=== PATIENT | female | born 1965 | race Caucasian/White ===

== ENCOUNTER → 2017-02-23 | Outpatient (CLI) | payer OTHER, MEDICAID ==
[~2017-02-23] MED LIST: ABILIFY 5 MG TAB5 MG PO; ADVAIR 500-501 EACH INH; ALTACE10 MG PO; AMBIEN 10 MG TA10 MG PO; AMITRIPTYLINE H50 M3; AMITRIPTYLINE H50 M3 PO; ASA5UEC PO; ASPIRIN325 PO; AUGMENTIN 875875 MG PO; AZITHROMYCIN 2250 MG PO; BENAZEPRIL HCL20 MG PO; CARBAMAZEPINE200 M2 PO; CARBAMAZEPINE200 M5 PO; CARISOPRODOL350 MG PO; CARVEDILOL3.125 MG PO; CATAPRES0.1 MG PO; CLONAZEPAM 1 MG1 M1 PO; CLONIDINE0.1 PO; COLACE100 MG PO; COREG3.125 MG PO; CORICIDIN COLD1 EACH PO; CYMBALTA30 MG PO; CYMBALTA60 MG PO; DICLOFENAC POTA50 MG PO; DICLOFENAC SODI25 MG PO; DICLOFENAC SODI75 M1 PO; DICLOFENAC SODI75 MG PO; DONNATAL E16.2 MG/1 PO; DONNATAL EXTEN1 EACH PO; DONNATAL PO; DOXEPIN 10 MG C10 MG PO; DOXEPIN 25 MG C25 MG PO; ELAVIL PO; FLEXERIL PO; HYDROCODONE-AP1 EAC6 PO; HYDROXYCHLOROQ200 M1 PO; HYDROXYZINE PAM25 M1 PO; IBUPROFEN 800800 M1 PO; INVEGA6 MG PO; KLOR-CON 1010 MEQ PO; LASIX 20 MG TAB20 MG PO; LEVAQUIN 250 M250 MG PO; LEVOTHYROXINE0.05 MG PO; LIORESAL 10 MG10 MG PO; LISINOPRIL10 MG PO; LOTENSIN HCT 21 EAC2 PO; LOTENSIN20 MG PO; LUNESTA3 MG PO; MEDROL DOSPAK21 TA1 PO; MEDROL DOSPAK21 TAB PO; MEDROLDOSEPACK PO; MEVACOR40 MG PO; MUCINEX600 MG PO; NEURONTIN800 MG PO; NICOTINE TRANSD14 M1 TD; NICOTINE TRANSDE7 MG TD; NORCO 5-325 TA1 EACH PO; OXYCODONE HCL 55 MG PO; OXYCODONE HCL15 MG PO; OXYCONTIN10 M1 PO; OXYCONTIN30 MG PO; PERCOCET 5-3251 EACH PO; PERCOCET 7.5-31 EACH PO; PERCOCET PO; PHENERGAN 25 MG25 M1 PO; POTASSIUM20 PO; PREDNISONE 10 M10 M1 PO; PREDNISONE 10 M10 MG; PREDNISONE 10 M10 MG PO; PREMARIN1.25 MG PO; PRILOSEC 20 MG20 MG PO; PRILOSEC40 MG PO; PROAIR HFA8.5 GM INH; PROPRANOLOL 8080 MG PO; REQUIP XL2 MG PO; RESTORIL15 MG PO; RESTORIL30 MG PO; ROBAXIN 750 MG750 M1; ROBAXIN 750 MG750 M1 PO; ROBAXIN 750 MG750 MG PO; ROBAXIN500 MG PO; SIMVASTATIN40 MG PO; SINGULAIR 10 MG10 M1 PO; SONATA10 MG; SONATA10 MG PO; SPIRIVA INH; SPRIVIA IN; TEGRETOL200 MG PO; TESSALON PERLE100 MG PO; TOPAMAX50 MG PO; TRAZODONE HCL50 MG PO; TRIAMCINOLONE A80 G2 TOP; VENTOLIN HFA 1818 GM; VENTOLIN HFA 1818 GM INH; VENTOLIN HFA INH8 GM IH; VISTARIL 25 MG25 M1 PO; VITAMIN D 5050000 I1 PO; VITAMIN D1000 UNI2 PO; VITAMIN D2000 UNIT PO; VITAMIN D3400 UNIT PO; ZITHROMAX250 MG PO; ZOCOR40 MG PO; ZPAK PO
[2017-02-23 15:25] LABS: CALCIUM 9.2 mg/dL (8.5-10.1); CREATININE 1.2 mg/dL (0.6-1.3); POTASSIUM 4.1 mmol/L (3.5-5.1)
== END ==
LOC: M.LAB 15:04
PROVIDERS: Internal Medicine Cardiovascular Disease
DX: I10 Essential (primary) hypertension (principal); E03.9 Hypothyroidism, unspecified

== ENCOUNTER → 2017-03-03 | Outpatient (CLI) | payer OTHER, MEDICAID | LOC: M.ULTRA 08:08 | DX: I10 Essential (primary) hypertension (principal) ==

== ENCOUNTER 2017-03-28 15:00 | Emergency (ER) | payer OTHER, MEDICAID ==
[~2017-03-28] VITALS: Ht 170.2 cm; Wt 104.3 kg
[~2017-03-28 15:00] MED LIST changes: -ALTACE10 MG PO; -CARBAMAZEPINE200 M5 PO; -CARVEDILOL3.125 MG PO; -CORICIDIN COLD1 EACH PO; -CYMBALTA30 MG PO; -DONNATAL PO; -DOXEPIN 10 MG C10 MG PO; -DOXEPIN 25 MG C25 MG PO; -HYDROXYCHLOROQ200 M1 PO; -OXYCODONE HCL15 MG PO; -OXYCONTIN10 M1 PO; -PRILOSEC 20 MG20 MG PO; -RESTORIL30 MG PO; -TRIAMCINOLONE A80 G2 TOP; -VENTOLIN HFA 1818 GM INH; -VISTARIL 25 MG25 M1 PO; -VITAMIN D1000 UNI2 PO; -ZITHROMAX250 MG PO; -ZPAK PO
[2017-03-28] MEDS ORDERED: ROBAXIN 750 MG750 M1 PO (15:36)
[2017-03-28] MEDS ORDERED: RESTORIL30 MG PO (15:37)
[2017-03-28] MEDS ORDERED: ALTACE10 MG PO (15:37)
[2017-03-28] MEDS ORDERED: NORCO 5-325 TA1 EACH PO (15:59)
[2017-03-28 16:59] VITALS: BP 110/61
== END 2017-03-28 17:00 | disposition home or self-care (01) ==
LOC: M.ERS 15:00
DX: S82.891A Other fracture of right lower leg, initial encounter for closed fracture (principal); I10 Essential (primary) hypertension; K21.9 Gastro-esophageal reflux disease without esophagitis; F32.9 Major depressive disorder, single episode, unspecified; F41.9 Anxiety disorder, unspecified; E78.00 Pure hypercholesterolemia, unspecified; Z90.710 Acquired absence of both cervix and uterus; Z88.5 Allergy status to narcotic agent; Z88.2 Allergy status to sulfonamides; Z91.041 Radiographic dye allergy status; Y93.89 Activity, other specified; W00.0XXA Fall on same level due to ice and snow, initial encounter; Y92.89 Other specified places as the place of occurrence of the external cause; Y99.8 Other external cause status

== ENCOUNTER → 2017-04-13 | Outpatient (CLI) | payer OTHER, MEDICAID ==
[~2017-04-13] MED LIST changes: +ALTACE10 MG PO; +CARBAMAZEPINE200 M5 PO; +CARVEDILOL3.125 MG PO; +CORICIDIN COLD1 EACH PO; +CYMBALTA30 MG PO; +DONNATAL PO; +DOXEPIN 10 MG C10 MG PO; +DOXEPIN 25 MG C25 MG PO; +HYDROXYCHLOROQ200 M1 PO; +OXYCODONE HCL15 MG PO; +OXYCONTIN10 M1 PO; +PRILOSEC 20 MG20 MG PO; +RESTORIL30 MG PO; +TRIAMCINOLONE A80 G2 TOP; +VENTOLIN HFA 1818 GM INH; +VISTARIL 25 MG25 M1 PO; +VITAMIN D1000 UNI2 PO; +ZITHROMAX250 MG PO; +ZPAK PO
== END ==
LOC: M.ULTRA 16:27
DX: M79.661 Pain in right lower leg (principal)

== ENCOUNTER 2017-05-17 14:44 | Emergency (ER) | payer OTHER, MEDICAID ==
[~2017-05-17] VITALS: Ht 170.2 cm; Wt 99.8 kg
[~2017-05-17 14:44] MED LIST changes: -CARBAMAZEPINE200 M5 PO; -CARVEDILOL3.125 MG PO; -CORICIDIN COLD1 EACH PO; -CYMBALTA30 MG PO; -DONNATAL PO; -DOXEPIN 10 MG C10 MG PO; -DOXEPIN 25 MG C25 MG PO; -HYDROXYCHLOROQ200 M1 PO; -OXYCODONE HCL15 MG PO; -OXYCONTIN10 M1 PO; -PRILOSEC 20 MG20 MG PO; -TRIAMCINOLONE A80 G2 TOP; -VENTOLIN HFA 1818 GM INH; -VISTARIL 25 MG25 M1 PO; -VITAMIN D1000 UNI2 PO; -ZITHROMAX250 MG PO; -ZPAK PO
[2017-05-17] MEDS ORDERED: ZPAK PO (15:25)
[2017-05-17] MEDS ORDERED: TESSALON PERLE100 MG PO (15:25)
[2017-05-17] MEDS ORDERED: MEDROLDOSEPACK PO (15:25)
[2017-05-17] MEDS ORDERED: CORICIDIN COLD1 EACH PO (15:26)
[2017-05-17 15:43] VITALS: BP 188/90
== END 2017-05-17 15:43 | disposition home or self-care (01) ==
LOC: M.ERS 14:44
DX: J20.9 Acute bronchitis, unspecified (principal); I10 Essential (primary) hypertension; E78.00 Pure hypercholesterolemia, unspecified; M79.7 Fibromyalgia; K21.9 Gastro-esophageal reflux disease without esophagitis; Z90.710 Acquired absence of both cervix and uterus; Z88.2 Allergy status to sulfonamides; Z88.5 Allergy status to narcotic agent

== ENCOUNTER 2017-11-17 13:36 | Inpatient (IN) | payer OTHER, MEDICAID ==
[~2017-11-17] VITALS: Ht 170.2 cm; Wt 106.1 kg
[~2017-11-17 13:36] MED LIST changes: +CORICIDIN COLD1 EACH PO; +ZPAK PO
[2017-11-17 13:40] VITALS: BP 100/58
[2017-11-17] MEDS ORDERED: ZITHROMAX250 MG PO (13:51)
[2017-11-17] MEDS ORDERED: VENTOLIN HFA 1818 GM INH (13:51)
[2017-11-17] MEDS ORDERED: TRIAMCINOLONE A80 G2 TOP (13:52)
[2017-11-17] MEDS ORDERED: DOXEPIN 25 MG C25 MG PO (13:52)
[2017-11-17 14:07] LABS: ABSOLUTE BASOPHILS 0.1 thou/uL (0.0-0.2); ABSOLUTE EOSINOPHILS 0.4 thou/uL (0.0-0.7); ABSOLUTE LYMPHOCYTES 1.9 thou/uL (0.8-5.3); ABSOLUTE MONOCYTES 1.1 thou/uL (0.0-1.2); ABSOLUTE NEUTROPHILS 8.1 thou/uL (1.6-8.1); BASOPHILS 1.1 %; EOSINOPHILS 3.7 %; HEMATOCRIT 38.5 % (37.0-47.0); HEMOGLOBIN 12.9 gm/dL (12.0-15.0); LYMPHOCYTES 16.5 %; MCH 31.1 pg (26.0-34.0); MCHC 33.4 g/dL (28.0-37.0); MCV 93.2 fL (80.0-100.0); MONOCYTES 9.5 %; MPV 8.5 fl. (7.2-11.1); NUCLEATED RBCS 0 /100WBC; PLATELET COUNT* 271 thou/uL (150-400); POLYS 69.2 %; RBC 4.14 mil/uL (4.20-5.00); RDW-CV 13.8 % (10.5-14.5); WBC 11.7 thou/uL (4.0-11.0)
[2017-11-17 14:12] LABS: ANION GAP 6 mmol/L (7-16); BUN 22 mg/dL (7-18); CHLORIDE 96 mmol/L (98-107); CO2 26 mmol/L (21-32); CREATININE 1.2 mg/dL (0.6-1.3); GLUCOSE 117 mg/dL (70-99); POTASSIUM 3.7 mmol/L (3.5-5.1); SODIUM 128 mmol/L (136-145)
[2017-11-17 14:24] LABS: ALBUMIN 3.2 g/dL (3.4-5.0); ALKALINE PHOSPHATASE 120 U/L (46-116); NT-PRO BRAIN NAT PEPTIDE 140 pg/mL (<300); SGOT 120 U/L (15-37); SGPT 34 U/L (30-65); TOTAL BILIRUBIN 1.2 mg/dL (<0.1-1.0); TOTAL PROTEIN 7.8 g/dL (6.4-8.2); TROPONIN-I LEVEL <0.06 ng/mL (<0.06)
[2017-11-17 16:00] LABS: ICTOTEST (BILI CONFIRMATORY) Negative (Negative); URINE BILIRUBIN 2+ (Negative); URINE BLOOD 1+ (Negative); URINE CLARITY CLEAR; URINE COLOR DARK YELLOW; URINE GLUCOSE-RANDOM NEGATIVE (Negative); URINE KETONES NEGATIVE (Negative); URINE LEUKOCYTES-REFLEX NEGATIVE (Negative); URINE NITRITE-REFLEX NEGATIVE (Negative); URINE PROTEIN 1+ (Negative); URINE SPECIFIC GRAVITY 1.025 (1.005-1.030)
[2017-11-17 16:25] VITALS: BP 99/43
[2017-11-17 16:33] LABS: HYALINE CASTS >10 Many /LPF (None Seen); SQUAMOUS >10 Many /LPF (0-3)
[2017-11-17 16:34] LABS: CRYSTALS None Seen /LPF (None Seen); MUCUS 0-3 Light strn/LPF (None Seen); URINE RBC 0-2 Rare /HPF (0-2); URINE WBC-REFLEX 0-5 Rare /HPF (0-5)
[2017-11-17 16:35] LABS: BACTERIA-REFLEX 1-9 Few /HPF (None Seen)
[2017-11-17 17:07] LABS: INFLUENZA A ANTIGEN None Detected (None Detect); INFLUENZA B ANTIGEN None Detected (None Detect)
[2017-11-17] MEDS ORDERED: OXYCONTIN10 M1 PO (17:12)
[2017-11-17] MEDS ORDERED: OXYCODONE HCL15 MG PO (17:13)
--- NOTE | 2017-11-17 17:30 | EKG ---
[place] [address] ELECTROCARDIOGRAM REPORT Name: HUY MARCIAL Room: [address] ADM IN M.R.#: [id number] Admission: 11/17/17 Attend Phys: Edmundo Esteban Discharge: Date of : 69 Report #: [id number] THIS REPORT FOR: //name// [facility] ED Test Date: 2017-11-17 Test Time: 13:55:36 Pat Name: HUY MARCIAL Department: Room: [facility] Gender: F Insurance Special Agent: Mandy HARTMANN : 1965 Requested By: Norris Rose Order Number: [id number] MD: Wilmar Srinivasan Measurements Intervals [place] Rate: 76 P: 41 DE: 142 QRS: 18 QRSD: 146 T: -2 QT: 402 QTc: 453 Interpretive Statements Sinus rhythm Probable left atrial enlargement Right bundle branch block Compared to ECG 10/08/2014 16:53:21 Sinus tachycardia no longer present T-wave abnormality no longer present Electronically Signed On 11-17-2017 17:30:11 CDT by Wilmar Srinivasan [email or web address] <ELECTRONICALLY SIGNED> By: Wilmar Srinivasan MD, FACC 11/17/17 1730 1355 [id number] Wilmar Srinivasan MD, FAC /EPI
--- NOTE | 2017-11-17 18:36 | NUR ---
PT ADMITTED FROM ED WITH PNEUMONIA. PT DROWSY AND ORIENTED X4. PT UNABLE TO STAY AWAKE DURING CONVERSATION AND HAS SLOW RESPONSE IN DECISION MAKING, PUPILS DILATED. PT HAS CHRONIC PAIN AND REPORTS TAKING OXYCONTIN ER 10MG AND 15MG. PT REPORTS TAKING 15MG OXYCONTIN ER DAILY IN THE MORNING AND BEGAN TO TELL THIS NURSE 10MG OXYCONTIN ER IS TAKEN 4-6 TIMES A DAY, COUNTING ON FINGERS. WHEN QUESTIONED ABOUT THIS, PT SAID 10MG OXYCONTIN IS TAKEN JUST ONCE IN EARLY AFTERNOON. PT CONTINUALLY NODS OFF DURING CONVERSATION. RESPIRATIONS EVEN AND UNLABORED AT REST. PT REPORTS OCCASIONAL NONPRODUCTIVE COUGH. LUNGS CLEAR THROUGHOUT. O2 SAT 93 2L O2 NC. TELE SR 70'S. PT LIVES ALONE BUT HAS A CAREGIVER FOR 12 HOURS A DAY. PT ORIENTED TO ROOM, CALL LIGHT IN REACH.
[2017-11-17] MEDS ORDERED: DONNATAL PO (19:00)
[2017-11-17 19:30] VITALS: BP 94/49
[2017-11-18] VITALS: BP 105/58
[2017-11-18 04:00] VITALS: BP 120/52
--- NOTE | 2017-11-18 07:35 | NUR ---
ASSUMED CARE AT 1930, ASSESSMENT CHARTED. PATIENT ALERT/ORIENTED X4, RESTING IN BED. PATIENT DROWSY, ORIENTED X4. SLURRED SPEECH NOTED, STATES THAT'S NOT NEW FOR HER AND THAT SHE'S HAD IT SINCE HER VOCAL CORD SURGERY. ON TELE, SR. WEARING OXYGEN 2L/NC, SOB WITH EXERTION, SATS 91%. SL INTACT TO LEFT AC, FLUSHES WELL. UP WITH ASSIST, WEAKNESS NOTED. STATES HAVING BACK PAIN, RATES 6/10, REASSURANCE GIVEN. REFUSING SCD'S. MEDS PER APR. BED ALARM ON. CALL LIGHT WITHIN REACH, ENCOURAGED TO CALL FOR NEEDS.
--- NOTE | 2017-11-18 07:39 | NUR ---
PATIENT UP IN CHAIR THIS AM. PAIN MEDICATION GIVEN PER MAR FOR STATED BACK PAIN. CHAIR ALARM ON. REPORT GIVEN TO ONCOMING NURSE.
[2017-11-18 07:55] VITALS: BP 100/47
--- NOTE | 2017-11-18 08:04 | NUR ---
RECIEVED REPORT. ASSUMED CARE OF PT AT 0730. VSS. CARDIAC MONITORING IN PLACE SR. AM ASSESSMENT AND VITALS COMPLETED CHARTED. PT IS DROWSY THIS AM. BUT IS ORIENTED. PT ON 2L PER NC WITH O2 SAT AT 92%. IV SALINE LOCKED AT THIS TIME. PT DENIES ANY PAIN. PT SITTING UP IN CHAIR THIS AM. PER REPORT PT UNSTEADY ON FEET. FALL PRECAUTIONS IN PLACE. PT INFORMED OF PLAN OF CARE. CALL LIGHT IS WITHIN REACH. WILL CONTINUE TO MONTIOR FOR DURATION OF SHIFT.
[2017-11-18 11:36] VITALS: BP 116/63
[2017-11-18] MEDS ORDERED: CARBAMAZEPINE200 M5 PO (15:11)
[2017-11-18] MEDS ORDERED: CARVEDILOL3.125 MG PO (15:11)
[2017-11-18] MEDS ORDERED: VITAMIN D1000 UNI2 PO (15:12)
[2017-11-18] MEDS ORDERED: DOXEPIN 10 MG C10 MG PO (15:15)
[2017-11-18] MEDS ORDERED: CYMBALTA30 MG PO (15:16)
[2017-11-18] MEDS ORDERED: VISTARIL 25 MG25 M1 PO (15:18)
[2017-11-18] MEDS ORDERED: IBUPROFEN 800800 M1 PO (15:19)
[2017-11-18] MEDS ORDERED: ROBAXIN 750 MG750 M1 PO (15:20)
[2017-11-18] MEDS ORDERED: LISINOPRIL10 MG PO (15:20)
[2017-11-18] MEDS ORDERED: SINGULAIR 10 MG10 M1 PO (15:21)
[2017-11-18] MEDS ORDERED: PRILOSEC 20 MG20 MG PO (15:22)
[2017-11-18] MEDS ORDERED: SIMVASTATIN40 MG PO (15:25)
[2017-11-18 15:27] VITALS: BP 130/68
[2017-11-18] MEDS ORDERED: CLONAZEPAM 1 MG1 M1 PO (15:55)
[2017-11-18] MEDS ORDERED: HYDROXYCHLOROQ200 M1 PO (15:57)
--- NOTE | 2017-11-18 16:00 | NUR ---
pt's home med list updated per medical records in chart.
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
--- NOTE | 2017-11-18 16:52 | 2DMMODE ---
[place] [address] 2 D/M-MODE ECHOCARDIOGRAM Name: HUY MARCIAL Room: [address] ADM IN [facility]#: [id number] Admission: 11/17/17 Attend Phys: Bharath Kellogg Discharge: Date of : 69 Date of Service: 11/18/17 1652 Report #: [id number] THIS REPORT FOR: //name// APPROVED REPORT Study performed: 11/18/2017 15:48:32 EXAM: Comprehensive 2D, Doppler, and color-flow Echocardiogram Patient Location: In-Patient Room #: [facility] Status: routine BSA: 2.16 HR: 77 bpm BP: 116/63 mmHg Rhythm: NSR Other Information Study Quality: Good Indications Dyspnea 2D Dimensions IVSd: 13.18 (7-11mm) LVOT Diam: 19.07 (18-24mm) LVDd: 47.81 mm PWd: 11.20 (7-11mm) Ascending Ao: 28.36 (22-36mm) LVDs: 26.31 (25-40mm) Aortic Root: 33.88 mm Volumes Left Atrial Volume (Systole) LA ESV Index: 28.90 mL/m2 Aortic Valve AoV Peak Riley.: 1.79 m/s AO Peak Gr.: 12.82 mmHg LVOT Max P.61 mmHg AO Mean Gr.: 7.24 mmHg LVOT Mean P.38 mmHg LVOT Max V: 1.70 m/s AO V2 VTI: 31.12 cm LVOT Mean V: 1.05 m/s RHINA (VTI): 3.00 cm2 LVOT V1 VTI: 32.71 cm Mitral Valve E/A Ratio: 1.61 MV Decel. Time: 161.61 ms MV E Max Riley.: 1.16 m/[place] [address] 2 D/M-MODE ECHOCARDIOGRAM Name: HUY MARCIAL Room: [address] IN .R.#: [id number] Admission: 11/17/17 Attend Phys: Bharath Kellogg Discharge: Date of : 69 Date of Service: 11/18/17 1652 Report #: [id number] MV PHT: 46.87 ms MVA (PHT): 4.69 cm2 TDI E/Lateral E': 7.25 E/Medial E': 5.80 Medial E' Riley.: 0.20 m/s Lateral E' Riley.: 0.16 m/s Pulmonary Valve PV Peak Riley.: 1.13 m/s PV Peak Gr.: 5.13 mmHg Tricuspid Valve RAP Estimate: 5.00 mmHg TR Peak Gr.: 26.60 mmHg RVSP: 31.00 mmHg PA Pressure: 31.00 mmHg Left Ventricle The left ventricle is normal size. There is normal LV segmental wall motion. There is normal left ventricular wall thickness. Left ventricular systolic function is normal. The left ventricular ejection fraction is within the normal range. LVEF is 65%. The left ventricular diastolic function is normal. Right Ventricle The right ventricle is normal size. The right ventricular systolic function is normal. Atria The left atrium size is normal. The right atrium size is normal. Aortic Valve The aortic valve is normal in structure. No aortic regurgitation is present. There is no aortic valvular stenosis. Mitral Valve The mitral valve is normal in structure. There is no mitral valve regurgitation noted. No evidence of mitral valve stenosis. Tricuspid Valve The tricuspid valve is normal in structure. Mild tricuspid regurgitation. Mild pulmonary hypertension. Pulmonic Valve The pulmonary valve is normal in structure. [place] [address] 2 D/M-MODE ECHOCARDIOGRAM Name: HUY MARCIAL Room: [address] IN [facility]#: [id number] Admission: 11/17/17 Attend Phys: Bharath Kellogg Discharge: Date of : 69 Date of Service: 11/18/17 1652 Report #: [id number] Great Vessels The aortic root is normal in size. IVC is normal in size and collapses >50% with inspiration. Pericardium There is no pericardial effusion. <Conclusion> The left ventricle is normal size. There is normal left ventricular wall thickness. Left ventricular systolic function is normal. The left ventricular ejection fraction is within the normal range. LVEF is 65%. The left ventricular diastolic function is normal. The right ventricle is normal size. The left atrium size is normal. The aortic valve is normal in structure. The mitral valve is normal in structure. The tricuspid valve is normal in structure. IVC is normal in size and collapses >50% with inspiration. There is no pericardial effusion. There is normal LV segmental wall motion. <ELECTRONICALLY SIGNED> By: Wilmar Srinivasan MD, FACC 11/18/171651 51 51 Wilmar Srinivasan MD, FACC /INF
--- NOTE | 2017-11-18 18:07 | NUR ---
VSS. CARDIAC MONITORING IN PLACE WITH NO CHANGES. THIS SHIFT. PT'S PAIN WELL MANAGED WITH PO PAIN MEDS. PT IS UP WITH STAND BY ASSISTANCE. IV SALINE LOCKED. PT MORE AWAKE THIS AFTERNOON. CALL LIGHT IS WITHIN REACH. WILL CONTINUE TO MONTIOR FOR DURATION OF SHIFT.
[2017-11-18 19:30] VITALS: BP 151/68
[2017-11-19] VITALS (9 sets, daily range): BP systolic 108–146; BP diastolic 47–76
[2017-11-19 04:27] LABS: ABSOLUTE BASOPHILS 0.1 thou/uL (0.0-0.2); ABSOLUTE EOSINOPHILS 0.3 thou/uL (0.0-0.7); ABSOLUTE MONOCYTES 0.7 thou/uL (0.0-1.2); ABSOLUTE NEUTROPHILS 3.7 thou/uL (1.6-8.1); BASOPHILS 1.4 %; HEMATOCRIT 34.4 % (37.0-47.0); HEMOGLOBIN 11.4 gm/dL (12.0-15.0); LYMPHOCYTES 29.9 %; MCH 31.1 pg (26.0-34.0); MCHC 33.2 g/dL (28.0-37.0); MCV 93.8 fL (80.0-100.0); MONOCYTES 9.7 %; MPV 8.2 fl. (7.2-11.1); NUCLEATED RBCS 0 /100WBC; PLATELET COUNT* 291 thou/uL (150-400); RBC 3.67 mil/uL (4.20-5.00); RDW-CV 13.7 % (10.5-14.5); WBC 6.8 thou/uL (4.0-11.0)
--- NOTE | 2017-11-19 07:30 | NUR ---
PATIENT RESTED WELL THROUGH THE NIGHT. UP WITH SBA IN ROOM. DENIES NEEDS. BED ALARM ON. WILL MONITOR.
[2017-11-19] MEDS ORDERED: DONNATAL PO (12:10)
[2017-11-19] MEDS ORDERED: CYMBALTA30 MG PO (12:10)
[2017-11-19] MEDS ORDERED: HYDROXYCHLOROQ200 M1 PO (12:10)
[2017-11-19] MEDS ORDERED: SPRIVIA IN (12:10)
[2017-11-19] MEDS ORDERED: LISINOPRIL10 MG PO (12:10)
[2017-11-19] MEDS ORDERED: PROAIR HFA8.5 GM INH (12:10)
[2017-11-19] MEDS ORDERED: REQUIP XL2 MG PO (12:10)
[2017-11-19] MEDS ORDERED: OXYCODONE HCL15 MG PO (12:10)
[2017-11-19] MEDS ORDERED: CLONAZEPAM 1 MG1 M1 PO (12:10)
[2017-11-19] MEDS ORDERED: DOXEPIN 10 MG C10 MG PO (12:10)
[2017-11-19] MEDS ORDERED: VITAMIN D1000 UNI2 PO (12:10)
[2017-11-19] MEDS ORDERED: SINGULAIR 10 MG10 M1 PO (12:10)
[2017-11-19] MEDS ORDERED: RESTORIL30 MG PO (12:10)
[2017-11-19] MEDS ORDERED: PRILOSEC 20 MG20 MG PO (12:10)
[2017-11-19] MEDS ORDERED: ABILIFY 5 MG TAB5 MG PO (12:10)
[2017-11-19] MEDS ORDERED: IBUPROFEN 800800 M1 PO (12:10)
[2017-11-19] MEDS ORDERED: CARBAMAZEPINE200 M5 PO (12:10)
[2017-11-19] MEDS ORDERED: ROBAXIN 750 MG750 M1 PO (12:10)
[2017-11-19] MEDS ORDERED: SIMVASTATIN40 MG PO (12:10)
[2017-11-19] MEDS ORDERED: CARVEDILOL3.125 MG PO (12:10)
--- NOTE | 2017-11-19 14:10 | NUR ---
Pt to dc to home today, now requiring o2 during the day, Ex Ox ordered. CM spoke with [facility] [phone], CM to fax qualifying info once ExOx complete [phone]
--- NOTE | 2017-11-20 01:22 | NUR ---
RECEIVED REPORT AND ASSUMED CARE AT 1900. VSS. ASSESSMENT COMPLETED CHARTED. PT REPORTED PAIN IN HER BACK, PRN PAIN MEDICATION ADMIN PER ORDERS. DISCUSSED PLAN OF CARE.VERBALIZED UNDERSTANDING . PT WAS TO BE DISCHARGED THIS AFTERNOON. PT CAREGIVER UNABLE TO BRING OXYGEN FROM HOME FOR PT TO WEAR WHILE TRANSPORTING. PT ON 2L NC, UP AD STEFANIA IN ROOM. MEDICATION ADMIN PER ORDERS. WILL CONTINUE TO MONITOR FOR REMAINDER OF THE SHIFT
--- NOTE | 2017-11-20 08:00 | NUR ---
Pt resting in bed, appears alert o x 4, denies chets pain, SOB, does C/O chronic back pain, plan on D/C today, needs O2 set up prior to D/C
--- NOTE | 2017-11-20 10:14 | NUR ---
Pt's dc delayed yesterday, d/t Pt's o2 company not bringing a portable o2 tank. Pt's is coming from the [employer] to bring her a tank around noon today. CM faxed scripts to [facility] in [place] f:[phone], p:[phone].
[2017-11-20 12:35] VITALS: BP 146/67
== END 2017-11-20 12:39 | disposition home or self-care (01) | DRG 177 ==
LOC: M.ERS 13:36 → M.TBA-ER 15:15 → M.2W 15:15
PROVIDERS: Emergency Medicine Emergency Medical Services; ADMIT Internal Medicine
DX: J15.6 Pneumonia due to other Gram-negative bacteria (principal); J96.20 Acute and chronic respiratory failure, unspecified whether with hypoxia or hypercapnia; I10 Essential (primary) hypertension; E78.00 Pure hypercholesterolemia, unspecified; K21.9 Gastro-esophageal reflux disease without esophagitis; F32.9 Major depressive disorder, single episode, unspecified; F41.9 Anxiety disorder, unspecified; M79.7 Fibromyalgia; E04.9 Nontoxic goiter, unspecified; Z88.2 Allergy status to sulfonamides; Z88.5 Allergy status to narcotic agent; Z90.710 Acquired absence of both cervix and uterus; Z91.041 Radiographic dye allergy status; Z79.899 Other long term (current) drug therapy

== ENCOUNTER 2018-04-02 15:44 | Inpatient (IN) | payer OTHER, MEDICAID ==
[~2018-04-02] VITALS: Ht 170.2 cm; Wt 98.0 kg
[~2018-04-02 15:44] MED LIST changes: +CARBAMAZEPINE200 M5 PO; +CARVEDILOL3.125 MG PO; +CYMBALTA30 MG PO; +DONNATAL PO; +DOXEPIN 10 MG C10 MG PO; +DOXEPIN 25 MG C25 MG PO; +HYDROXYCHLOROQ200 M1 PO; +OXYCODONE HCL15 MG PO; +OXYCONTIN10 M1 PO; +PRILOSEC 20 MG20 MG PO; +TRIAMCINOLONE A80 G2 TOP; +VENTOLIN HFA 1818 GM INH; +VISTARIL 25 MG25 M1 PO; +VITAMIN D1000 UNI2 PO; +ZITHROMAX250 MG PO
[2018-04-02 15:50] VITALS: BP 146/77
[2018-04-02 16:14] LABS: ABSOLUTE BASOPHILS 0.1 thou/uL (0.0-0.2); ABSOLUTE EOSINOPHILS 0.2 thou/uL (0.0-0.7); ABSOLUTE LYMPHOCYTES 1.4 thou/uL (0.8-5.3); ABSOLUTE MONOCYTES 0.7 thou/uL (0.0-1.2); ABSOLUTE NEUTROPHILS 8.1 thou/uL (1.6-8.1); BASOPHILS 0.7 %; EOSINOPHILS 2.3 %; HEMATOCRIT 45.4 % (37.0-47.0); HEMOGLOBIN 15.3 gm/dL (12.0-15.0); LYMPHOCYTES 13.4 %; MCH 31.6 pg (26.0-34.0); MCHC 33.6 g/dL (28.0-37.0); MCV 94.1 fL (80.0-100.0); MONOCYTES 6.6 %; MPV 9.1 fl. (7.2-11.1); NUCLEATED RBCS 0 /100WBC; PLATELET COUNT* 195 thou/uL (150-400); RBC 4.83 mil/uL (4.20-5.00); RDW-CV 13.2 % (10.5-14.5); WBC 10.5 thou/uL (4.0-11.0)
[2018-04-02 16:35] LABS: CALCIUM 8.9 mg/dL (8.5-10.1); CREATININE 0.9 mg/dL (0.6-1.3); POTASSIUM 3.8 mmol/L (3.5-5.1)
[2018-04-02 16:42] LABS: APTT 34.3 Seconds (25.0-31.3); INR 1.1; PROTIME 11.4 Seconds (9.20-11.50)
[2018-04-02 16:43] LABS: ALBUMIN 3.1 g/dL (3.4-5.0); TOTAL BILIRUBIN 0.5 mg/dL (<0.1-1.0); TOTAL PROTEIN 7.6 g/dL (6.4-8.2)
[2018-04-02 16:58] LABS: INFLUENZA A ANTIGEN None Detected (None Detect); INFLUENZA B ANTIGEN None Detected (None Detect)
[2018-04-02 17:20] VITALS: BP 157/70
[2018-04-02 17:29] VITALS: BP 123/69
--- NOTE | 2018-04-02 18:44 | NUR ---
ADMIT NOTE - PT ADMITTED TO [facility] WITH PNEUMONIA. PT ON 6L NC. PT ABLE TO WALK TO BR WITH STANDBY ASSIST. PT HAS HOME O2 CURRENTLY AND USES 3L AT HS. WILL CONTINUE TO MONITOR.
[2018-04-02 19:10] VITALS: BP 111/62
--- NOTE | 2018-04-02 23:05 | NUR ---
ASSESSMENT COMPLETED CHARTED. TRACING SR-ST ON NURSE PRACTITIONER HOME ASSESSMENTS. VSS. PT DENIES PAIN, N/V/D. PT REMAINS ON 2LPM. NO NEW CONCERNS. HOURLY ROUNDING FOR PT SAFETY. CLWR.
[2018-04-03 08:00] VITALS: BP 116/75
[2018-04-03 16:09] VITALS: BP 113/55
--- NOTE | 2018-04-03 17:19 | NUR ---
SHIFT NOTE - PT UP TO BR WITH STANDBY ASSIST. PT STILL ON 6L O2 SATTING 91%. WILL CONTINUE TO MONITOR.
[2018-04-04] VITALS (11 sets, daily range): BP systolic 122–227; BP diastolic 56–200
[2018-04-04 05:00] LABS: ABSOLUTE LYMPHOCYTES 1.9 thou/uL (0.8-5.3); ABSOLUTE MONOCYTES 1.1 thou/uL (0.0-1.2); BASOPHILS 0.1 %; HEMATOCRIT 38.9 % (37.0-47.0); HEMOGLOBIN 12.9 gm/dL (12.0-15.0); LYMPHOCYTES 10.7 %; MCH 31.6 pg (26.0-34.0); MCHC 33.1 g/dL (28.0-37.0); MCV 95.5 fL (80.0-100.0); MPV 9.5 fl. (7.2-11.1); NUCLEATED RBCS 0 /100WBC; PLATELET COUNT* 189 thou/uL (150-400); POLYS 83.2 %; RBC 4.07 mil/uL (4.20-5.00); RDW-CV 12.9 % (10.5-14.5)
--- NOTE | 2018-04-04 06:44 | NUR ---
PATIENT SLEPT WELL AFTER FLUIDS DC'D, LASIX AND BREATHING TREATMENTS. PT ON O2 @ 12 LITERS PER HI FLOW CANNULA. PT UP TO BSC WITH STANDBY ASSIST. PT GIVEN PAIN MEDICATION AT HS. PT DENIES NEEDS AT THIS TIME. WILL CONTINUE TO MONITOR.
--- NOTE | 2018-04-04 10:47 | NUR ---
SW met with pt to complete initial assessment, introduce self, and SW role. Pt lives at home alone; with caregiver 10 to 3:30 (pt did not say anything about whether her is supportive or not as was contact at last admission to hospital). Pt has hx oxygen, SW asked if pt still has oxygen at home and she said she has 2 bottles to take home. Pt was sleepy and difficult to follow in conversation...possibly due to previous TBI or possibly due to pt expressed she was really weak and tired right now. SW provided resources for more private duty options as well as DME and HH options. SW to continue to follow to assist with safe dc planning.
[2018-04-04 17:41] LABS: BE 0 mmol/L (-2 to +3)
[2018-04-04 17:46] LABS: PCO2 60.9 mmHg (35.0-45.0); pH 7.283 (7.340-7.450)
--- NOTE | 2018-04-04 18:29 | NUR ---
0700 assmed care of pt. pt up to bedside commode with minimal assist. IV LEFT AC PATENT AND FLUSHED. LUNGS HAVE CRACKLES AND WHEEZES BILATERALLY THROUGHOUT, PT CONT ON 12L O2 VIA NC. 0950 THIS NURSE SENT A MESSAGE VIA [employer], PT SAT 91% ON 2LO2.
--- NOTE | 2018-04-04 18:33 | NUR ---
1300 DR. ALEXIS HERE TO SEE PT. NEW ORDER FOR PULMONOLOGY CONSULT ENTERED. THIS NURSE CALLED CONSULT IN STAT.
--- NOTE | 2018-04-04 18:34 | NUR ---
1700 PT HAS FEVER OF 100.0, TYLENOL GIVEN AT 1730
--- NOTE | 2018-04-04 18:35 | NUR ---
1730 PULMONOLOGY HERE FOR CONSULT. NEW ORDERS FOR ABG FOR HYPOXIA. 1745 LAB CALLED RESULTS TO THIS NURSE, RESULTS GIVEN TO WHO IS PRESENT ON UNIT. ORDERS TO TRANSFER PT TO ICU AND PUT ON BI-PAP. 1800 THIS NURSE AND NURSE AIDE TRANSFERRED PT TO ICU, BEDSIDE REPORT GIVEN TO ANA.
--- NOTE | 2018-04-04 18:38 | NUR ---
PATIENT TRANSFERED TO ROOM 2 IN ICU. RECEIVED REPORT FROM JOSE CROWELL, ALL QUESTIONS ANSWERED WITH BEDSIDE REPORT. JOSE TOLD PATIENT SHE WOULD CALL AND NOTIFIY PATIENTS . 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 PATIENT DOES NOT LIKE BIPAP, EXPLAINED TO HER THE IMPORTANCE OF KEEPING ON, PATIENT AGREED FOR NOW BUT IS FORGETFUL. CALL LIGHT IN REACH.
[2018-04-04 20:40] LABS: BE 0.4 mmol/L (-2 to +3); PO2 88.4 mmHg (75.0-100.0)
[2018-04-04 20:44] LABS: PCO2 61.8 mmHg (35.0-45.0); pH 7.283 (7.340-7.450)
[2018-04-05] VITALS (37 sets, daily range): BP systolic 89–146; BP diastolic 42–69
[2018-04-05 00:29] LABS: BE 2.8 mmol/L (-2 to +3); PO2 93.2 mmHg (75.0-100.0)
[2018-04-05 00:38] LABS: PCO2 79.5 mmHg (35.0-45.0); pH 7.232 (7.340-7.450)
[2018-04-05 06:23] LABS: BE 5.2 mmol/L (-2 to +3); PO2 83.1 mmHg (75.0-100.0); pH 7.365 (7.340-7.450)
[2018-04-05 06:26] LABS: PCO2 57.9 mmHg (35.0-45.0)
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
--- NOTE | 2018-04-05 08:41 | NUR ---
Pt intubated at [address] Mclaughlin. Pt became agitated and very restless shortly after procedure. Titrated fentanyl, versed, & propofol gtts to achieve light sedation. SBP upper 80s to low 100s until around 0400. BP and MAP stable since. Pt was anxious and tearful prior to being intubated. Pt's (ex?) arrived at bedside just prior to intubation per pt request to provide support. ABGs improved after adjustments made to ventilator settings per Dr. Walters's orders. Will continue to monitor.
[2018-04-05 10:22] LABS: HEMATOCRIT 39.3 % (37.0-47.0); HEMOGLOBIN 12.9 gm/dL (12.0-15.0); MCHC 32.8 g/dL (28.0-37.0); MCV 94.6 fL (80.0-100.0); MPV 8.8 fl. (7.2-11.1); NUCLEATED RBCS 0 /100WBC; PLATELET COUNT* 193 thou/uL (150-400); RBC 4.15 mil/uL (4.20-5.00); RDW-CV 13.4 % (10.5-14.5); WBC 13.1 thou/uL (4.0-11.0)
[2018-04-05 10:29] LABS: CALCIUM 8.7 mg/dL (8.5-10.1); CREATININE 0.6 mg/dL (0.6-1.3)
[2018-04-05 11:00] LABS: ABSOLUTE LYMPHOCYTES 0.8 thou/uL (0.8-5.3); ABSOLUTE MONOCYTES 0.7 thou/uL (0.0-1.2); ABSOLUTE NEUTROPHILS 11.7 thou/uL (1.6-8.1); ANISOCYTOSIS 1+; PLATELET ESTIMATE ADEQUATE; POIKILOCYTOSIS 1+
[2018-04-05 14:35] LABS: URINE BILIRUBIN NEGATIVE (Negative); URINE BLOOD NEGATIVE (Negative); URINE CLARITY CLEAR; URINE COLOR YELLOW; URINE GLUCOSE-RANDOM NEGATIVE (Negative); URINE KETONES NEGATIVE (Negative); URINE LEUKOCYTES-REFLEX TRACE (Negative); URINE NITRITE-REFLEX NEGATIVE (Negative); URINE PROTEIN 1+ (Negative); URINE SPECIFIC GRAVITY >= 1.030 (1.005-1.030); URINE UROBILINOGEN 0.2 E.U./dl (0.2-1.0)
[2018-04-05 15:01] LABS: BACTERIA-REFLEX 1-9 Few /HPF (None Seen); CRYSTALS None Seen /LPF (None Seen); HYALINE CASTS 0-3 Few /LPF (None Seen); MUCUS None Seen strn/LPF (None Seen); SQUAMOUS 0-3 Few /LPF (0-3); URINE WBC-REFLEX 6-15 Few /HPF (0-5)
[2018-04-05 15:02] LABS: URINE RBC 0-2 Rare /HPF (0-2)
--- NOTE | 2018-04-05 18:02 | NUR ---
PATIENT REMAINS ON VENTILATOR, HEAVILY SEDATED PER DR STINSON TO KEEP PEAK PRESSURES DOWN. VISITED THIS AM AND UPDATED THROUGHOUT THE SHIFT WHEN HE CALLED FOR UPDATE. PATIENT AROUSES TO PAINFUL STIMULI EVEN WHILE ON SEDATION. NO SEDATION VACATION PERFORMED THIS SHIFT PER DR STINSON DUE TO PEAK PRESSURES. LOADING AND UNLOADING SUPERVISOR IN PLACE, NO APPARENT PAIN. BED IN LOWEST POSITION
[2018-04-05 20:23] LABS: BE 2.5 mmol/L (-2 to +3); PO2 100.6 mmHg (75.0-100.0)
[2018-04-05 20:26] LABS: PCO2 64.7 mmHg (35.0-45.0); pH 7.293 (7.340-7.450)
[2018-04-06] VITALS (23 sets, daily range): BP systolic 125–155; BP diastolic 52–75
[2018-04-06 05:46] LABS: BE -2.1 mmol/L (-2 to +3); PCO2 38.9 mmHg (35.0-45.0); PO2 88.9 mmHg (75.0-100.0); pH 7.384 (7.340-7.450)
[2018-04-06 06:30] LABS: ABSOLUTE LYMPHOCYTES 1.3 thou/uL (0.8-5.3); ABSOLUTE MONOCYTES 0.7 thou/uL (0.0-1.2); ABSOLUTE NEUTROPHILS 11.8 thou/uL (1.6-8.1); BASOPHILS 0.3 %; HEMATOCRIT 37.8 % (37.0-47.0); HEMOGLOBIN 12.5 gm/dL (12.0-15.0); LYMPHOCYTES 9.2 %; MCH 31.4 pg (26.0-34.0); MCHC 33.1 g/dL (28.0-37.0); MCV 94.8 fL (80.0-100.0); MONOCYTES 5.1 %; MPV 9.1 fl. (7.2-11.1); NUCLEATED RBCS 0 /100WBC; PLATELET COUNT* 202 thou/uL (150-400); POLYS 85.4 %; RBC 3.99 mil/uL (4.20-5.00); RDW-CV 13.4 % (10.5-14.5); WBC 13.9 thou/uL (4.0-11.0)
[2018-04-06 06:31] LABS: CALCIUM 8.7 mg/dL (8.5-10.1); CREATININE 0.5 mg/dL (0.6-1.3); MAGNESIUM 2.5 mg/dL (1.8-2.4); POTASSIUM 3.5 mmol/L (3.5-5.1)
--- NOTE | 2018-04-06 07:18 | NUR ---
Pt's sedation regimen adjusted to the following: propofol at 50 mcg/kg/min and fentanyl at 100 mcg/hr. Ventilator settings adjusted following 2000 ABG. pH & pCO2 at normal levels this am (critical values last pm). Low urine output overnight (280 mls), but continues to have large amount of gastric contents via OG. See I&O. Will continue to monitor.
--- NOTE | 2018-04-06 10:25 | NUR ---
PT TRANSFERRED TO ICU ON 04/04 AND WAS INTUBATED. REMAINS ON VENT. NO FAMILY HERE AT THIS TIME. CASE MGT WILL CONTINUE TO FOLLOW.
--- NOTE | 2018-04-06 11:26 | CON ---
[address] [address] CONSULTATION Name: HUY MARCIAL Room: [address] ADM IN M.R.#: [id number] Admission: 04/02/18 Attend Phys: Gustabo Brandt MD Discharge: Date of : 69 Report #: [id number] THIS REPORT FOR: //name// CC: Hong Brandt DATE OF SERVICE: 04/05/2018 INFECTIOUS DISEASE CONSULTATION ATTENDING PHYSICIAN: Dr. Pierson. REASON FOR EVALUATION: Severe pneumonitis, complicated by respiratory failure, recommendation for antibiotic therapy. HISTORY OF PRESENT ILLNESS: Chart reviewed, patient examined. This 52-year-old woman, with history of chronic pain and apparently a question of underlying lung disease, was admitted through the Emergency Room with complaints of progressive dyspnea with a productive cough of 2-3 days. It is notable she was ill, latter part of last year was diagnosed with influenza pneumonia at that point. After admission, she was placed on broad-spectrum therapy; however, she clearly had deterioration with progression of multilobar infiltrates leading to hypoxemia, had required emergent intubation, is now in the ICU on mechanical ventilator support. She was started on broad-spectrum antibiotic therapy to include azithromycin, cefepime and vancomycin. At this point, she is sedated. ALLERGIES: LISTED TO SULFA, CODEINE. CURRENT MEDICATIONS: Include vancomycin, pantoprazole, azithromycin, propofol, methylprednisolone, p.r.n. analgesics, cefepime, enoxaparin, montelukast, ropinirole, aripiprazole, lisinopril, carvedilol, temazepam, methocarbamol. PAST MEDICAL HISTORY: History of hypertension, high cholesterol, fibromyalgia, reflux, had a traumatic brain injury, depression, anxiety. SOCIAL HISTORY: Nonsmoker, no ethanol, no illicit drug use. FAMILY HISTORY: Noncontributory. REVIEW OF SYSTEMS: Not obtainable. PHYSICAL EXAMINATION: GENERAL: She is sedated, supine on the vent. She has an ET and an OG tube in place. She has got peripheral IVs in both extremities. She has got an arterial line. HEENT: [place] [address] CONSULTATION Name: HUY MARCIAL Room: [address] IN [facility].#: [id number] Admission: 04/02/18 Attend Phys: Gustabo Brandt MD Discharge: Date of : 69 Report #: [id number] NECK: Appears to be supple. LUNGS: Scattered bilateral coarse breath sounds. HEART: Regular. ABDOMEN: Mildly distended, soft. There are no overt peritoneal signs. GENITOURINARY: Deferred. RECTAL: Deferred. LABORATORY DATA: CBC initially white count of 10.5, repeat is 13.1; H and H 12.9 and 39.9, platelets of 193. Differential unremarkable with the exception of neutrophilia. Electrolytes: Sodium 146, potassium 3.0, chloride 108, bicarbonate is 35, BUN and creatinine 19 and 0.6. Estimated GFR 106. Most recent chest x-ray showed extensive diffuse bilateral infiltrates, some nodularity. ABGs: pH 7.365, pCO2 of 57.9, pO2 of 83.1, FiO2 of 85%. Blood cultures collected on 04/02/2018 are sterile thus far. ASSESSMENT: Severe pneumonitis, complicated by respiratory failure, now on mechanical ventilatory support. Agree with empiric broad-spectrum antibiotic therapy. It is difficult to ascertain, but I suspect it is multifactorial etiology. There is a sputum culture pending, we will see that results, go and check urinary antigens. MRSA surveillance is pending as well. Wean off support as allowed. For some reason, I think this is not a reversible situation, although she may have a progression such as an acute respiratory distress syndrome picture. <ELECTRONICALLY SIGNED> By: Shane Macedo MD 04/06/18 1126 1207 24Joaida Macedo MD /nt
--- NOTE | 2018-04-06 17:39 | NUR ---
PATIENT SOMEWHAT PROGRESSING TOWARDS GOALS. ABLE TO WEAN DOWN SOME ON OXYGEN REQUIREMENTS THIS SHIFT. TUBE FEEDING STARTED PER DR ALEXIS AND TOLERATING WELL AT THIS TIME. CALLED THIS AM AND HE WAS UPDATED ON PLAN OF CARE. BLACK TOP SPREADER MACHINE OPERATOR IN PLACE, FALL PRECAUTIONS IN PLACE, BED IN LOWEST POSITION
[2018-04-07] VITALS (23 sets, daily range): BP systolic 105–186; BP diastolic 52–76
[2018-04-07 04:30] LABS: ABSOLUTE LYMPHOCYTES 1.1 thou/uL (0.8-5.3); ABSOLUTE MONOCYTES 0.5 thou/uL (0.0-1.2); ABSOLUTE NEUTROPHILS 8.7 thou/uL (1.6-8.1); BASOPHILS 0.4 %; HEMATOCRIT 28.2 % (37.0-47.0); LYMPHOCYTES 10.7 %; MCH 31.7 pg (26.0-34.0); MCHC 33.2 g/dL (28.0-37.0); MCV 95.6 fL (80.0-100.0); MONOCYTES 4.6 %; MPV 8.9 fl. (7.2-11.1); NUCLEATED RBCS 0 /100WBC; PLATELET COUNT* 148 thou/uL (150-400); POLYS 84.3 %; RBC 2.95 mil/uL (4.20-5.00); RDW-CV 13.4 % (10.5-14.5); WBC 10.4 thou/uL (4.0-11.0)
[2018-04-07 04:45] LABS: ALBUMIN 1.3 g/dL (3.4-5.0); ALKALINE PHOSPHATASE 53 U/L (46-116); ANION GAP 7 mmol/L (7-16); BUN 21 mg/dL (7-18); CHLORIDE 117 mmol/L (98-107); CHOLESTEROL 90 mg/dL (<200); CO2 26 mmol/L (21-32); CREATININE 0.3 mg/dL (0.6-1.3); GLUCOSE 118 mg/dL (70-99); HDL CHOLESTEROL 20 mg/dL (>40); LDL CHOLESTEROL 52 mg/dL (<100); SGOT 6 U/L (15-37); SGPT 11 U/L (30-65); SODIUM 150 mmol/L (136-145); TC:HDL 4.5 Ratio (Not establshd); TOTAL BILIRUBIN 0.2 mg/dL (<0.1-1.0); TOTAL PROTEIN 3.8 g/dL (6.4-8.2); TRIGLYCERIDE 91 mg/dL (<150); VLDL 18 mg/dL (<40)
[2018-04-07 04:51] LABS: CALCIUM 5.7 mg/dL (8.5-10.1); POTASSIUM 2.6 mmol/L (3.5-5.1); SERUM ASSESSMENT CLEAR
[2018-04-07 04:58] LABS: HEMOGLOBIN 9.3 gm/dL (12.0-15.0)
--- NOTE | 2018-04-07 05:20 | NUR ---
REPORT RECEIVED FROM OFF GOING SHIFT AND CARE ASSUMMED. ETT 7.5 24 @ LIP INTACT AND CONNECTED TO VENTILATOR. SETTINGS AC 20. TV 400, PEEP 8 AND FIO2 60%. OGT INTACT AND SECURED AT 60CM. GLUCERNA TUBE FEEDING CONNECTED TO OGT AND INFUSING AT 40CC/HR WHICH IS THE GOAL RATE. TORRES INTACT AND PATENT DRAINING YELLOWISH URINE TO BEDSIDE BAG. PT HAS BEEN TURNED Q2H THIS SHIFT. RESTRAINTS INTACT. VSS AND NO ACUTE CHaNGES DURING SHIFT. WILL CONTINUE TO MONITOR
[2018-04-07 05:33] LABS: BE 2.6 mmol/L (-2 to +3); PO2 85.2 mmHg (75.0-100.0); pH 7.357 (7.340-7.450)
[2018-04-08] VITALS (12 sets, daily range): BP systolic 130–154; BP diastolic 54–73
--- NOTE | 2018-04-08 06:46 | NUR ---
REPORT RECEIVED FROM OFF GOING SHIFT ANDCARE ASSUMMED. MONITORS INTACT WITH ALARMS SET. ETT 7.5 INTACT AND CONNECTED TO VENTILATOR WITH SETTINGS AC24, TV 350, PEEP 8 AND FIO2 60%. GLUCERNA INFUSING AT 40CC/HR VIA PUMP THRU OGT. TORRES INTACT AND PATENT DRAINING GREENISH YELLOW URINE TO BEDSIDE BAG.VSS ANO NO ACUTE CHANGES DURING SHIFT WILL CONTINUE TO MONITOR
[2018-04-08 09:08] LABS: BE 8.3 mmol/L (-2 to +3); PO2 75.8 mmHg (75.0-100.0); pH 7.406 (7.340-7.450)
[2018-04-08 09:15] LABS: PCO2 56.5 mmHg (35.0-45.0)
[2018-04-08 09:58] LABS: HEMATOCRIT 28.9 % (37.0-47.0); HEMOGLOBIN 9.6 gm/dL (12.0-15.0); MCH 31.5 pg (26.0-34.0); MCHC 33.3 g/dL (28.0-37.0); MCV 94.4 fL (80.0-100.0); MPV 9.7 fl. (7.2-11.1); NUCLEATED RBCS 0 /100WBC; PLATELET COUNT* 163 thou/uL (150-400); RBC 3.06 mil/uL (4.20-5.00); RDW-CV 13.5 % (10.5-14.5); WBC 9.7 thou/uL (4.0-11.0)
[2018-04-08 09:59] LABS: CREATININE 0.3 mg/dL (0.6-1.3)
[2018-04-08 10:10] LABS: POTASSIUM 3.2 mmol/L (3.5-5.1)
[2018-04-08 10:11] LABS: CALCIUM 5.9 mg/dL (8.5-10.1)
--- NOTE | 2018-04-08 10:40 | NUR ---
SPOKE WITH WILFREDO AT BEDSIDE (PT AND WILFREDO ARE AND PT HAS BEEN LIVING ALONE RECENTLY). WILFREDO AWARE THAT PT HAS SIGNIFICANT PNEUMONIA, BUT HE SHOCKED WITH THE DOCTOR AND NURSE STARTED TALKING ABOUT POSSIBILTY OF TRACH AND PEG. DESCRIBED BOTH PROCEDURES TO HIM, EXPLAINED THAT WE ARE BEGINNING THE CONVERSATION NOW WITH HIM ABOUT THAT POSSIBLITY SO HE HAS MORE TIME TO THINK ABOUT IT AND PROCESS IT, IF SHE DOES END UP NEEDING TO HAVE THEM DONE. WILFREDO SPOKE WITH RIG BUILDER HELPER THIS MORNING, HE HAD NO QUESTIONS ABOUT PLAN OF CARE AFTER THAT. DISCUSSED ROLE OF CASE MGT, WILL CONTINUE TO FOLLOW.
[2018-04-08 10:44] LABS: ABSOLUTE LYMPHOCYTES 1.6 thou/uL (0.8-5.3); ABSOLUTE MONOCYTES 0.2 thou/uL (0.0-1.2); ATYPICAL LYMPHS 6 %; METAMYELOCYTES 2 %; PLATELET ESTIMATE ADEQUATE
--- NOTE | 2018-04-08 15:25 | NUR ---
RIGHT BASILIC VESSEL ACCESSED FOR 5 SWISS TRIPLE LUMEN PICC. LINE PRE-TRIMMED TO 42CM AND ADVANCED TO THE ZERO ELI WITH NO RESISTANCE MET. UPPER ARM CIRCUMFERENCE ABOVE ISERTION SITE = 13". SHERLOCK MAGNET AND 3CG CONFRIMATION OF TIP TERMINATION AT THE CAVOATRIAL JUNCTION. GUIDEWIRE REMOVED, LINE FLUSHED AND INSERTION SITE DRESSED. REPORT GIVEN TO NURSING STAFF.
[2018-04-09] VITALS (13 sets, daily range): BP systolic 111–209; BP diastolic 54–71
[2018-04-09 05:10] LABS: ABSOLUTE LYMPHOCYTES 1.9 thou/uL (0.8-5.3); ABSOLUTE MONOCYTES 0.5 thou/uL (0.0-1.2); ABSOLUTE NEUTROPHILS 8.8 thou/uL (1.6-8.1); BASOPHILS 0.4 %; HEMATOCRIT 37.5 % (37.0-47.0); LYMPHOCYTES 17.1 %; MCH 30.6 pg (26.0-34.0); MCHC 32.8 g/dL (28.0-37.0); MCV 93.4 fL (80.0-100.0); MONOCYTES 4.8 %; MPV 9.2 fl. (7.2-11.1); NUCLEATED RBCS 0 /100WBC; PLATELET COUNT* 207 thou/uL (150-400); POLYS 77.7 %; RBC 4.02 mil/uL (4.20-5.00); RDW-CV 13.8 % (10.5-14.5); WBC 11.4 thou/uL (4.0-11.0)
[2018-04-09 06:02] LABS: ALBUMIN 1.9 g/dL (3.4-5.0); CREATININE 0.5 mg/dL (0.6-1.3); MAGNESIUM 2.4 mg/dL (1.8-2.4); POTASSIUM 4.8 mmol/L (3.5-5.1); TOTAL BILIRUBIN 0.2 mg/dL (<0.1-1.0); TOTAL PROTEIN 5.9 g/dL (6.4-8.2)
[2018-04-09 06:06] LABS: CALCIUM 8.7 mg/dL (8.5-10.1)
[2018-04-09 06:12] LABS: BE 12.2 mmol/L (-2 to +3); PO2 85.5 mmHg (75.0-100.0); pH 7.424 (7.340-7.450)
[2018-04-09 06:24] LABS: PCO2 61.1 mmHg (35.0-45.0)
--- NOTE | 2018-04-09 06:37 | NUR ---
I AGREE WITH THE STUDENTS CHARTING.
--- NOTE | 2018-04-09 06:47 | NUR ---
REPORT RECEIVED FROM OFF GOING SHIFT AND CARE ASSUMMED. MONITORS INTACT WITH ALARM SET. ETT 7.5 INTACT AND 2 @ LIP AND CONNECTED TO VENTILATOR WITH SETTINGS AC 24 PEEP 8 TV 350 ABD FIO2 60%. TORRES INTACT AND PATENT DRAINING GREENISH URINE TO BEDSIDE BAG. JEVITY 1.5 STARTED ORDERED AT 10CC/HR AND GOAL OF 40 VIA PUMP. VSS AND NO ACUTE CHANGES DURING SHIFT WILL CONTINUE TO MONITOR
[2018-04-09 07:35] LABS: HEMOGLOBIN 12.3 gm/dL (12.0-15.0)
--- NOTE | 2018-04-09 09:33 | NUR ---
ASSUMED CARE OF PATIENT FROM SOCRATES PINON. GOALS: WEAN DOWN PROPOFOL AND START VERSED GTT. PER DR PEÑALOZA, NO SEDATION VACATION D/T HIGH O2 NEEDS TODAY. HE WANTS PATIENT TO REMAIN CALM. BP ELEVATED. DR. ALEXIS ROUNDED AND NOTIFIED. PO MEDS GIVEN FOR BP.
--- NOTE | 2018-04-09 18:24 | NUR ---
MADE SOME PROGRESS TODAY. DECREASED FIO2 TO 55%. WEANING PROPOFOL GTT DOWN AND NOW ON VERSED GTT. NO REAL CHANGE IN HR AT THIS TIME.
[2018-04-10] VITALS (18 sets, daily range): BP systolic 99–161; BP diastolic 45–106
[2018-04-10 06:22] LABS: CALCIUM 8.4 mg/dL (8.5-10.1); CREATININE 0.5 mg/dL (0.6-1.3); POTASSIUM 4.2 mmol/L (3.5-5.1)
[2018-04-10 06:30] LABS: BE 10.3 mmol/L (-2 to +3); PO2 93.7 mmHg (75.0-100.0)
[2018-04-10 06:32] LABS: PCO2 62.1 mmHg (35.0-45.0)
--- NOTE | 2018-04-10 06:39 | NUR ---
REPORT RECEIVED FROM OFF GOING SHIFT. AND CARE ASSUMMED.ETT 7.5 24 @ IP INTACT AND CONNECTED TO VENTILATOR SETTINGS AC 24, TV 350, FIO2 55%, PEEP 8. TORRES INTACT AND PATENT DRAINING GREENISH URINE TO BEDSIDE BAG. OGT INTACT AT 60CM AND CONNECTED TO GLUCERNA AT 50 CC.HR VIA PUMP GOAL 50. MONITORS INTACT WITH ALARMS SET. VSS AND NOACUTE CHANGES DURING SHIFT WILL CONTINUE OT MONITOR
--- NOTE | 2018-04-10 19:19 | NUR ---
PT STILL ON VERSED AND FENTANYL..FIO2 DECREASE TO 40% AND BREATING TRIAL TOMORROW.BM 2X AND LASIX 40MG GIVEN IN THE MORNING WITH >3L UOP.
[2018-04-11] VITALS (17 sets, daily range): BP systolic 87–198; BP diastolic 42–83
[2018-04-11 04:16] LABS: ABSOLUTE BASOPHILS 0.1 thou/uL (0.0-0.2); ABSOLUTE LYMPHOCYTES 1.2 thou/uL (0.8-5.3); ABSOLUTE MONOCYTES 0.4 thou/uL (0.0-1.2); ABSOLUTE NEUTROPHILS 12.9 thou/uL (1.6-8.1); BASOPHILS 0.4 %; HEMATOCRIT 40.7 % (37.0-47.0); HEMOGLOBIN 13.4 gm/dL (12.0-15.0); LYMPHOCYTES 8.5 %; MCH 30.7 pg (26.0-34.0); MCHC 32.8 g/dL (28.0-37.0); MCV 93.4 fL (80.0-100.0); MPV 9.6 fl. (7.2-11.1); NUCLEATED RBCS 0 /100WBC; PLATELET COUNT* 238 thou/uL (150-400); POLYS 88.1 %; RBC 4.36 mil/uL (4.20-5.00); RDW-CV 13.4 % (10.5-14.5); WBC 14.6 thou/uL (4.0-11.0)
[2018-04-11 04:39] LABS: ALBUMIN 2.3 g/dL (3.4-5.0); CALCIUM 8.9 mg/dL (8.5-10.1); CREATININE 0.6 mg/dL (0.6-1.3); TOTAL BILIRUBIN 0.4 mg/dL (<0.1-1.0); TOTAL PROTEIN 6.4 g/dL (6.4-8.2)
--- NOTE | 2018-04-11 06:20 | NUR ---
SLOW PROGRESSION TOWARDS GOALS, FENTANYL AND VERSED GTT STOPPED AT 05OO THIS AM FOR TT WEANING TRIAL, GLUCERNA 1.2 VIA OG STOPPED ALSO AT 0500 FOR ORDERED TTT. FULL BED BATH PROVIDED. NO CHANGE IN VENTILATOR SETTINGS DURING NOC, TOLERATING TF, GASTRIC RESIDUALS =<70CC, 10OCC FREE H2O FLUSHES PROVIDED VIA OG Q6H PER ORDER, MINIMAL YELLOW THICK SPUTUM SUCTIONED VIA INLINE ETT. SAFETY MAINTAINED.
--- NOTE | 2018-04-11 09:36 | NUR ---
PATIENT FAILED WEANING TRIAL R/T TACHYPNEA & HYPERTENSION. APPEARED TO BE RELATED TO ANXIETY. DR STINSON NOTIFIED. SEDATION TURNED BACK ON. PULM WILL ADJUST MEDS AND POSSIBLE REPEAT WEANING TRIAL THIS AFTERNOON.
--- NOTE | 2018-04-11 10:15 | NUR ---
Nutrition: Please increase TF to 60mL/hr to better meet needs. See RD Reassessment form for details.
--- NOTE | 2018-04-11 17:03 | NUR ---
PATIENT REMAINED SEDATED ON VENTILATOR THE REST OF THE SHIFT. NO ACUTE CONCERNS. REPEAT BREATHING TRIAL STARTED FOR THE AM.
[2018-04-12] VITALS (17 sets, daily range): BP systolic 94–161; BP diastolic 45–90
--- NOTE | 2018-04-12 05:31 | NUR ---
PATIENT PROGRESSING TOWARDS GOALS. NO ACUTE HEMODYNAMIC CHANGES OVER NIGHT. PT AROUSABLE ON COMMAND. ABLE TO NOD YES OR NO TO QUESTIONS APPROPRIATELY. RECEIVED FULL BED BATH AND LINEN CHANGE TOLERATED WELL. PT HAD MODERATE SIZE LIQUID BM. SEDATION TITRATED DOWN PER EXPECTED WEANING TRIAL THIS A.M. TUBE FEED WAS STOPPED @ 0200. RESIDUALS <10 THROUGH OUT THE NIGHT. PT SON VISITED PT UPDATED ON CURRENT CARE VOICED UNDERSTANDING. NO CURRENT CONCERNS AT THIS TIME. WILL CONTINUE TO MONITOR.
[2018-04-12 05:41] LABS: CALCIUM 8.9 mg/dL (8.5-10.1); CREATININE 0.5 mg/dL (0.6-1.3); POTASSIUM 4.1 mmol/L (3.5-5.1)
[2018-04-12 09:13] LABS: BE 7.3 mmol/L (-2 to +3); PCO2 47.2 mmHg (35.0-45.0); PO2 84.8 mmHg (75.0-100.0); pH 7.454 (7.340-7.450)
[2018-04-12 11:43] LABS: BE 5.4 mmol/L (-2 to +3); PO2 70.1 mmHg (75.0-100.0); pH 7.459 (7.340-7.450)
--- NOTE | 2018-04-12 13:18 | NUR ---
PATIENT CARE ASSUME AT 0700. PATIENT EXTUBATED AT 1000. TOLERATING WELL ON 4L NC AT THIS TIME. ABLE TO COUGH UP SECRETIONS WELL. SUCTIONING HERSELF WITH YAUNKER. AT BEDSIDE. LINENS CHANGED. NYSTATIN POWDER TO KEVIN AREA FOR REDDNESS. PATIENT STATED SHE HAD RASH AT HOME PRIOR TO COMING IN. HOWEVER, PATIENT STILL SOMEWHAT CONFUSED. DID HAVE PRIOR MEMORY ISSUES R/T TBI IN 2002. ORIENTED TO PERSON AND PLACE. ART LINE REMOVED POST EXTUBATION. VITALS WNL. PATIENT PASSED BEDSIDE SWALLOW EVAL WITH NURSING. PLACED ON CLEAR LIQUIDS WITH APPROVAL OF PULMONARY. PATIENT EATING JELLO AND WATCHING TV AT THIS TIME.
--- NOTE | 2018-04-12 16:42 | NUR ---
PATIENT PROGRESSING TOWARDS GOALS. UP IN CHAIR WITH PT THIS AFTERNOON. SPEECH WOULD LIKE TO CONTINUE ON CURRENT DIET, BUT DO VIDEO SWALLOW TOMORROW R/T FOCAL CORD ISSUES IN HISTORY. PATIENT GIVEN PRN TYLENOL X1 FOR HEADACHE RATED 7/10, ACHY. PATIENT ORIENTED TO PERSON AND PLACE, BUT OFTEN FORGETFUL. HX OF TBI, BUT STATES SHE IS MORE CONFUSED NOW THAN AT HOME. PATIENT ON 3L NC WITH SAT 96%. NON-LABORED BREATHING. NO MORE LIQUID BOWEL MOVEMENTS NOTED THIS SHIFT. NO OTHER ACUTE CONCERNS NOTED.
[2018-04-13] VITALS (12 sets, daily range): BP systolic 110–145; BP diastolic 63–91
[2018-04-13 04:41] LABS: HEMATOCRIT 40.5 % (37.0-47.0); HEMOGLOBIN 13.3 gm/dL (12.0-15.0); MCH 30.5 pg (26.0-34.0); MCHC 32.9 g/dL (28.0-37.0); MCV 92.8 fL (80.0-100.0); MPV 9.5 fl. (7.2-11.1); NUCLEATED RBCS 0 /100WBC; PLATELET COUNT* 270 thou/uL (150-400); RBC 4.36 mil/uL (4.20-5.00); RDW-CV 13.3 % (10.5-14.5); WBC 12.9 thou/uL (4.0-11.0)
[2018-04-13 04:58] LABS: CREATININE 0.6 mg/dL (0.6-1.3); POTASSIUM 3.9 mmol/L (3.5-5.1)
[2018-04-13 06:59] LABS: ABSOLUTE LYMPHOCYTES 1.4 thou/uL (0.8-5.3); ABSOLUTE MONOCYTES 1.2 thou/uL (0.0-1.2); ABSOLUTE NEUTROPHILS 10.3 thou/uL (1.6-8.1); MYELOCYTES 1 %; PLATELET ESTIMATE ADEQUATE
[2018-04-13 07:00] LABS: ANISOCYTOSIS 1+; POIKILOCYTOSIS 1+
--- NOTE | 2018-04-13 12:04 | 2DMMODE ---
[place] [address] 2 D/M-MODE ECHOCARDIOGRAM Name: HUY MARCIAL Room: [address] IN [facility]#: [id number] Admission: 04/02/18 Attend Phys: Gustabo Brandt, Discharge: Date of : 69 Date of Service: 04/13/18 1204 Report #: [id number] THIS REPORT FOR: //name// APPROVED REPORT Study performed: 04/13/2018 11:05:12 EXAM: Comprehensive 2D, Doppler, and color-flow Echocardiogram Patient Location: In-Patient Room #: 002 Status: routine BSA: 2.09 HR: 68 bpm BP: 110/64 mmHg Rhythm: NSR Other Information Study Quality: Good Indications Dyspnea 2D Dimensions IVSd: 12.14 (7-11mm) LVOT Diam: 19.61 (18-24mm) LVDd: 35.93 mm PWd: 12.65 (7-11mm) Ascending Ao: 29.55 (22-36mm) LVDs: 19.08 (25-40mm) Aortic Root: 34.59 mm Volumes Left Atrial Volume (Systole) LA ESV Index: 20.50 mL/m2 Aortic Valve AoV Peak Riley.: 1.59 m/s AO Peak Gr.: 10.10 mmHg LVOT Max P.95 mmHg AO Mean Gr.: 5.99 mmHg LVOT Mean P.13 mmHg LVOT Max V: 1.50 m/s AO V2 VTI: 27.66 cm LVOT Mean V: 0.92 m/s RHINA (VTI): 3.14 cm2 LVOT V1 VTI: 28.73 cm Mitral Valve E/A Ratio: 1.28 MV Decel. Time: 209.27 ms MV E Max Riley.: 0.69 m/[place] [address] 2 D/M-MODE ECHOCARDIOGRAM Name: HUY MARCIAL Room: [address] IN .R.#: [id number] Admission: 04/02/18 Attend Phys: Gustabo Brandt, Discharge: Date of : 69 Date of Service: 04/13/18 1204 Report #: [id number] MV PHT: 60.69 ms MVA (PHT): 3.63 cm2 TDI E/Lateral E': 9.86 E/Medial E': 6.27 Medial E' Riley.: 0.11 m/s Lateral E' Riley.: 0.07 m/s Pulmonary Valve PV Peak Riley.: 1.12 m/s PV Peak Gr.: 4.98 mmHg Tricuspid Valve RAP Estimate: 5.00 mmHg TR Peak Gr.: 24.14 mmHg RVSP: 29.00 mmHg PA Pressure: 29.00 mmHg Left Ventricle The left ventricle is normal size. There is normal LV segmental wall motion. Mild concentric left ventricular hypertrophy. Left ventricular systolic function is normal. The left ventricular ejection fraction is within the normal range. LVEF is 65-70%. The left ventricular diastolic function is normal. Right Ventricle The right ventricle is normal size. The right ventricular systolic function is normal. Atria The left atrium size is normal. The right atrium size is normal. Aortic Valve The aortic valve is normal in structure. Trace aortic regurgitation. There is no aortic valvular stenosis. Mitral Valve The mitral valve is normal in structure. There is no mitral valve regurgitation noted. No evidence of mitral valve stenosis. Tricuspid Valve The tricuspid valve is normal in structure. Trace tricuspid regurgitation. Pulmonic Valve The pulmonary valve is normal in structure. Mild [place] [address] 2 D/M-MODE ECHOCARDIOGRAM Name: HUY MARCIAL Room: [address] IN [facility].#: [id number] Admission: 04/02/18 Attend Phys: Gustabo Brandt, Discharge: Date of : 69 Date of Service: 04/13/18 1204 Report #: [id number] Great Vessels The aortic root is normal in size. The inferior vena cava is not well visualized. Pericardium There is no pericardial effusion. <Conclusion> Mild concentric left ventricular hypertrophy. LVEF is 65-70%. <ELECTRONICALLY SIGNED> By: Benito Esquivel MD, FACC 04/13/18 1204 03 03 Benito Esquivel MD, FACC /INF
--- NOTE | 2018-04-13 14:24 | NUR ---
SPOKE WITH PT, SHE IS ALERT AND ORIENTED AND ABLE TO ANSWER ALL QUESTIONS. PT CONFIRMS SHE HAS BEEN LIVING ALONE, HAS A CARE WORKER EMMETT WHO HELPS HER SET GOALS OF WHAT SHE WANT TO ACCOMPLISH, TAKES HER OUT FOR WALKS, ETC. SHE ALSO HAS HOMEMAKER ASSISTANCE TO HELP HER WITH CLEANING, LAUNDRY, ETC. SHE SAID SHE PAYS HER OWN BILLS. SHE SAID SHE HAS HOME 02 THAT SHE WEARS AT NIGHT ONLY, SHE DOES NOT KNOW THE NAME OF THE COMPANY. TOLD HER THAT EMMETT HAD CALLED LAST WEEK TO SEE HOW SHE WAS DOING, SHE SAID IT WAS OKAY TO CALL EMMETT TODAY AND GIVE HER AN UPDATE. LEFT FOR EMMETT ([phone]). CASE MGT WILL CONTINUE TO FOLLOW.
--- NOTE | 2018-04-13 16:31 | NUR ---
PATIENT ASSESSMENT REMAIND UNCHANGED. PATIENT AOX4, FORGETFUL RT TBI HX. PATIENT ON 3L NC, SAT 94-96%. PASSED SWALLOW EVAL, PLACED ON CHOPPED DIET TO MAKE IT EASIER FOR PATIENT R/T WEAKNESS. ONE LIQUID BOWEL MOVEMENT NOTED TODAY. CELESTINA PICC DISCONTINUED. PERIPHREAL IV STARTED IN LEFT HAND, 20G. TRACING SINUS MARLIN TO NSR ON AIRPORT ELECTRICIAN. DOWNGRADED TO M/S TELE. TRANSFERING TO ROOM 313. REPORT GIVEN TO BLACK. AWAITING BED FOR PATIENT TRANSFER.
--- NOTE | 2018-04-13 17:24 | NUR ---
PATIENT TRANSFERRED FROM ICU TO ROOM 313. REPORT RECEIVED FROM SOCRATES COBB. [address] IV SL. CENTRAL OFFICE OPERATOR SUPERVISOR IN PLACE TRACING SR.
[2018-04-14 04:00] VITALS: BP 106/44
--- NOTE | 2018-04-14 06:54 | NUR ---
PATIENT SLEPT MOST OF THE NIGHT. IV REMAINS SALINE LOCKED. PATIENT WAS GIVEN PAIN MEDICINE TWICE THIS SHIFT. TORRES REMAINS TO DEPENDENT DRAIN. WILL CONTINUE TO MONITOR.
[2018-04-14 08:00] VITALS: BP 110/50
[2018-04-14 08:12] LABS: ABSOLUTE EOSINOPHILS 0.1 thou/uL (0.0-0.7); ABSOLUTE LYMPHOCYTES 4.1 thou/uL (0.8-5.3); ABSOLUTE MONOCYTES 1.4 thou/uL (0.0-1.2); ABSOLUTE NEUTROPHILS 7.1 thou/uL (1.6-8.1); BASOPHILS 0.3 %; EOSINOPHILS 0.5 %; HEMATOCRIT 41.7 % (37.0-47.0); HEMOGLOBIN 13.8 gm/dL (12.0-15.0); LYMPHOCYTES 32.2 %; MCH 30.5 pg (26.0-34.0); MCHC 33.1 g/dL (28.0-37.0); MCV 92.3 fL (80.0-100.0); MONOCYTES 11.3 %; NUCLEATED RBCS 0 /100WBC; PLATELET COUNT* 290 thou/uL (150-400); POLYS 55.7 %; RBC 4.52 mil/uL (4.20-5.00); RDW-CV 13.8 % (10.5-14.5); WBC 12.7 thou/uL (4.0-11.0)
[2018-04-14 08:20] LABS: CREATININE 0.7 mg/dL (0.6-1.3); MAGNESIUM 2.3 mg/dL (1.8-2.4); POTASSIUM 3.1 mmol/L (3.5-5.1)
[2018-04-14 11:00] VITALS: BP 124/64
[2018-04-14 17:00] VITALS: BP 114/64
--- NOTE | 2018-04-14 17:39 | NUR ---
PATIENT IS ALERT AND ORIENTED VERY PLEASANT. UP IN CHAIR MOST OF THE DAY AND TOLERATING WELL. ENJOYS BEING OUT OF BED, SHOWERED TODAY AND IS FEELING BETTER PER PATIENT. APPEITE HAS IMPROVED. VITAL SIGNS STABLE ON ROOM AIR. CALL LIGHT IS IN REACH, WILL CONTINUE TO MONITOR.
[2018-04-14 20:30] VITALS: BP 109/49
[2018-04-15] VITALS: BP 100/47
[2018-04-15 04:00] VITALS: BP 114/45
--- NOTE | 2018-04-15 05:26 | NUR ---
PATIENT SLEPT PART OF THE NIGHT. PATIENT WAS UNABLE TO VOID THIS MORNING AT ABOUT 0300. BLADDER SCAN SHOWED 486 ML. PATIENT WAS STRAIGHT CATHED 600 ML OF NATALIA URINE WAS DRAINED. IV REMAINS SALINE LOCKED. OXYGEN REMAINS AT 3L. PATIENT WAS GIVEN PAIN MEDICINE. ONCE THIS SHIFT. WILL CONTINUE TO MONITOR.
[2018-04-15 08:00] VITALS: BP 118/49
--- NOTE | 2018-04-15 10:22 | NUR ---
I have reviewed the documentation by CHAPO VÁSQUEZ from 04/13/28 to 04/15/18 and I concur with it. CHAPARRO GARZA
[2018-04-15 11:00] VITALS: BP 86/43
[2018-04-15 15:00] VITALS: BP 98/57
--- NOTE | 2018-04-15 15:24 | NUR ---
APNS SPOKE TO THE PATIENT TO DISCUSS DISCHARGE PLANNING NEEDS FOR THE PATIENT AND INPATIENT REHAB AT D/C. D/C DRESSMAKER GARMENT FITTER INFORMED THE PATIENT THAT THE INPATIENT REHAB UNIT IN-HOUSE MAY NOT HAVE A BED AVAILABLE UNTIL NEXT WEDNESDAY, AND WE NEED TO CONSIDER ANOTHER ACUTE INPATIENT REHAB. PATIENT VERY TEARFUL DURING DISCUSSION STATING ' IREALLY JUST NEED TO GO HOME. I NEED TO PAY MY BILLS, AND TAKE CARE OF MY PETS. MY IS NOT DOING WELL AND IS GOING TO HAVE TO HAVE SURGERY SOON SO HE CAN'T HELP ME.' D/C DRESSMAKER GARMENT FITTER INFORMED THE PATIENT OF THE REASONS THAT THE PHYSICIAN IS RECOMMENDING INPATIENT REHAB. PATIENT STATES THAT SHE NEED TO HAVE TIME TO DISUCSS THIS WILL HER AND HER SON, AND THAT IT IS 'TOO MUCH RIGHT NOW'. DOMINIQUE INFORMED THE RN IN-CHARGE OF THE PATIENT OF THIS INFO. CM WILL F/U WITH THE PATIENT AT ANOTHER TIME TO DISCUSS HER DECISION ABOUT INPATIENT REHAB AT ANOTHER FACILITY
--- NOTE | 2018-04-15 18:00 | NUR ---
PATIENT IS ALERT AND ORIENTED TODAY VERY PLEASANT VITAL SIGNS STABLE ON 3 LITERS OF OXYGEN. PATIENT TEARFUL AT TIMES WITH SOME ANXIETY ABOUT PLANS. PATIENT WALKED WELL WITH THERAPY TODAY. TORRES NEEDED TO BE PLACED AGAIN DUE TO RETENTION. PATIENT HAS BEEN IN CHAIR A GOOD PART OF THE DAY AND TOLERATED THAT WELL. CALL LIGHT IS IN REACH WILL CONTINUE TO MONITOR.
[2018-04-16] VITALS (7 sets, daily range): BP systolic 86–114; BP diastolic 40–59
--- NOTE | 2018-04-16 05:12 | NUR ---
ASSUMED CARE AT START OF SHIFT PT C/O BACK PAIN. PO MEDICATION GIVEN, DISUCUSSED PLAN OF CARE AND VERBALIZED UNDERSTANDING, RESTED WELL THROGUHOUT HOURLY ROUNDS.
[2018-04-16 07:40] LABS: HEMATOCRIT 39.3 % (37.0-47.0); HEMOGLOBIN 12.9 gm/dL (12.0-15.0); MCH 30.5 pg (26.0-34.0); MCHC 32.9 g/dL (28.0-37.0); MCV 92.9 fL (80.0-100.0); MPV 9.1 fl. (7.2-11.1); RBC 4.23 mil/uL (4.20-5.00); RDW-CV 13.6 % (10.5-14.5)
[2018-04-16 08:00] LABS: CALCIUM 8.8 mg/dL (8.5-10.1); CREATININE 0.6 mg/dL (0.6-1.3); MAGNESIUM 2.1 mg/dL (1.8-2.4); POTASSIUM 3.1 mmol/L (3.5-5.1)
--- NOTE | 2018-04-16 17:03 | NUR ---
PATIENT A&O X4. PATIENT ON 3L NC. PATIENT RECEIVED OXYCODONE FOR PAIN. PATIENT WORKED WITH THERAPY TODAY. PATIENT INTERESTED IN REHABILITATION AFTER DISCHARGE. DRESSAGE INSTRUCTOR NSR WITH BBB. PATIENT SCHEDULED FOR CXR ON WEDNESDAY. PATIENT DID NOT RECEIVE SCHEUDLED IBUPROFEN DUE TO ABSENCE OF PAIN VERBALIZED BY PATIENT. PATIENT STILL HAS TORRES IN. PATIENT DID NOT HAVE BM DURING THIS SHIFT. PATIENT WAS PLESANT AND APPROPRIATE THORUGH SHIFT.
[2018-04-17] VITALS: BP 121/40
[2018-04-17 04:42] VITALS: BP 107/50
--- NOTE | 2018-04-17 04:55 | NUR ---
PT SLEPT MOST OF SHIFT. ASSESSMENT DOCUMENTED. MEDS GIVEN PER E-MAR. PAIN MEDS GIVEN PER E-MAR FOR BACK PAIN. PT STATES THAT HER RASH ON HER GROIN IS HURTING MORE AND THINKS THAT THE NYSTATIN POWDER MIGHT BE MAKING IT WORSE. WILL CONTINUE WITH PLAN OF CARE.
[2018-04-17 07:30] VITALS: BP 109/48
[2018-04-17 15:48] VITALS: BP 102/57
--- NOTE | 2018-04-17 16:35 | NUR ---
PATIENT UP TO CHAIR MOST OF SHIFT, WAFFLE CUSHION IN PLACE. FLUCONAZOLE 150MG GIVEN THIS AM. PATIENT REMAINS ON 3L NC. REHAB CONSULTED AND WILL FOLLOW THROUGH DISCHARGE. PATIENT REQUESITNG TO AMBULATE IN HALLS THIS EVENING.
[2018-04-17 20:05] VITALS: BP 108/60
[2018-04-18] VITALS: BP 113/54
[2018-04-18 04:00] VITALS: BP 96/42
--- NOTE | 2018-04-18 05:42 | NUR ---
PT SLEPT MOST OF SHIFT. ASSESSMENT DOCUMNETED. MEDS GIVEN PER E-MAR. IV PATENT. PAIN MEDS GIVEN PER E-MAR. TORRES IN PLACE DRAINING DEPENDENTLY. TELE MONITOR READING SR WITH BBB. WILL CONTINUE WITH PLAN OF CARE.
[2018-04-18 08:24] VITALS: BP 116/55
[2018-04-18 12:24] VITALS: BP 98/56
[2018-04-18 16:26] VITALS: BP 104/51
--- NOTE | 2018-04-18 16:56 | NUR ---
PT REMAINED ALERT AND ORIENTED. PT HAD TORRES REMOVED. PT HAS NOT BEEN ABLE TO VOID IN 6 HOURS, BLADDER SCANNED AND [address] DALAL NOTIFIED, UROLOGY CONSULTED. AWAITING UROLOGY TO CALL FOR ORDERS. PT X1 ASSIST TO BEDSIDE COMMODE. PT REFUSES NYSTATIN. CARVEDILOL HELD DUE TO LOW BLOOD PRESSURE. PT IS ON ROOM AIR, O2 SAT AT 95% ON ROOM AIR. PT SINUS RHYTHM ON MONITOR. FALL RISK PRECAUTIONS IN PLACE. HOULRY ROUNDING COMPELTED. WILL CONTINUE TO MONITOR.
--- NOTE | 2018-04-18 17:26 | NUR ---
urology called, no new knutson catheter unless patient starts to feel uncomfortable.
[2018-04-18 21:00] VITALS: BP 101/42
[2018-04-19] VITALS (8 sets, daily range): BP systolic 96–132; BP diastolic 49–67
--- NOTE | 2018-04-19 06:36 | NUR ---
PT SLEPT ON AND OFF THIS SHIFT. ASSESSMENT DOCUMENTED. MEDS GIVEN PER E-MAR. IV PATENT. PT VOIDED ADEQUATLY THIS SHIFT BY BSC. PAIN MEDS GIVEN PER E-MAR WITH RELIEF. WILL CONTINUE WITH PLAN OF CARE.
[2018-04-19] MEDS ORDERED: FLUCONAZOLE 10100 MG PO (09:04)
[2018-04-19] MEDS ORDERED: FLOMAX0.4 MG PO (09:04)
[2018-04-19] MEDS ORDERED: PULMICORT0.5 MG/2 M INH (09:04)
[2018-04-19] MEDS ORDERED: LEVSIN0.125 MG SUBLING (09:04)
[2018-04-19] MEDS ORDERED: ALBUTEROL SULFAT2 MG PO (09:04)
[2018-04-19] MEDS ORDERED: NEBULIZER MISCELL (09:04)
[2018-04-19] MEDS ORDERED: SENNA PLUS TAB1 EACH PO (09:04)
[2018-04-19] MEDS ORDERED: IPRAT-ALBUT 0.5-3 ML INH (09:04)
--- NOTE | 2018-04-19 10:52 | NUR ---
FINISH MIXER SPOKE TO THE PATIENT TO DISCUSS DISCHARGE PLANNING NEEDS, AND HH AT D/C. PATIENT IN AGREEMENT WITH HH WITH [facility], AND INFORMS OF NEED FOR A WALKER FOR MOBILITY. D/C WAITER WAITRESS SPOKE TO HELENA WITH [facility] TO INFORM OF THE HH REFERRAL, AND FAXED PATIENT'S D/C ORDERS. [facility] TO CONTACT THE PATIENT TO ARRANGE VISIT. D/C WAITER WAITRESS SPOKE TO HARLEEN WITH [facility] TO INFORM OF THE DME REFERRAL FOR A WALKER. PATIENT APPROVED FOR WALKER. P.T. TO DELIVER WALKER TO THE PATIENT'S ROOM. ORDER IN CHART. CM WILL REMAIN AVIALABLE TO ASSIST AND FOLLOW NEEDED.
--- NOTE | 2018-04-19 13:50 | NUR ---
VSS-AFEBRILE. LUNGS CLEAR-ROOM AIR. EMPTIED BLADDER, POST VOID BLADDER SCAN SHOWED <50ML. DISCUSSED ALL DC INSTRUCTIONS INCLUDING NEW PRESCRIPTIONS AND MEDICATIONS THAT HAVE ALREADY BEEN ADMINISTERED TODAY. PATIENT AND SPOUSE VERBALIZED UNDERSTANDING OF ALL INSTRUCTIONS. HOME [facility] TO CONTACT PATIENT WITHIN 24 HOURS TO SCHEDULE A TIME FOR NURSING AND THERAPY VISITS. PATIENT LEFT UNIT IN WHEELCHAIR WITH ALL PERSONAL BELOGINGS.
== END 2018-04-19 13:01 | disposition home health service (06) | DRG 207 ==
LOC: M.ERS 15:44 → M.3W 16:58 → M.TBA-ER 16:58 → M.3W 17:40 → M.ICU 04-04 18:10 → M.3W 04-13 17:03
PROVIDERS: Family Medicine; Internal Medicine; Internal Medicine Pulmonary Disease; Nurse Practitioner Family
PROC: 5A1955Z Respiratory Ventilation, Greater than 96 Consecutive Hours (ICD-10-PCS; principal; 2018-04-04)
PROC: 5A09357 Assistance with Respiratory Ventilation, Less than 24 Consecutive Hours, Continuous Positive Airway Pressure (ICD-10-PCS; principal; 2018-04-04)
PROC: 0BH17EZ Insertion of Endotracheal Airway into Trachea, Via Natural or Artificial Opening (ICD-10-PCS; principal; 2018-04-04)
PROC: 02H633Z Insertion of Infusion Device into Right Atrium, Percutaneous Approach (ICD-10-PCS; 2018-04-13)
DX: J15.6 Pneumonia due to other Gram-negative bacteria (principal); J96.21 Acute and chronic respiratory failure with hypoxia; E43 Unspecified severe protein-calorie malnutrition; J44.0 Chronic obstructive pulmonary disease with (acute) lower respiratory infection; J69.0 Pneumonitis due to inhalation of food and vomit; I10 Essential (primary) hypertension; E78.00 Pure hypercholesterolemia, unspecified; M79.7 Fibromyalgia; K21.9 Gastro-esophageal reflux disease without esophagitis; F32.9 Major depressive disorder, single episode, unspecified; G89.29 Other chronic pain; M54.9 Dorsalgia, unspecified; G25.81 Restless legs syndrome; E87.6 Hypokalemia; R33.9 Retention of urine, unspecified; E83.51 Hypocalcemia; F41.9 Anxiety disorder, unspecified; Z87.81 Personal history of (healed) traumatic fracture; Z68.33 Body mass index [BMI] 33.0-33.9, adult; Z98.1 Arthrodesis status; Z90.710 Acquired absence of both cervix and uterus; Z87.820 Personal history of traumatic brain injury; Z79.899 Other long term (current) drug therapy; Z88.5 Allergy status to narcotic agent; Z88.2 Allergy status to sulfonamides; Z91.041 Radiographic dye allergy status

== ENCOUNTER 2018-10-17 12:11 | Emergency (ER) | payer OTHER, MEDICAID ==
[~2018-10-17] VITALS: Ht 170.2 cm; Wt 72.6 kg
[~2018-10-17 12:11] MED LIST changes: +ALBUTEROL SULFAT2 MG PO; +FLOMAX0.4 MG PO; +FLUCONAZOLE 10100 MG PO; +IPRAT-ALBUT 0.5-3 ML INH; +LEVSIN0.125 MG SUBLING; +NEBULIZER MISCELL; +PULMICORT0.5 MG/2 M INH; +SENNA PLUS TAB1 EACH PO
[2018-10-17] MEDS ORDERED: PREDNISONE 20 M20 M1 PO (13:47)
[2018-10-17 14:00] VITALS: BP 101/59
== END 2018-10-17 14:00 | disposition home or self-care (01) ==
LOC: M.ERS 12:11
DX: J44.1 Chronic obstructive pulmonary disease with (acute) exacerbation (principal); I10 Essential (primary) hypertension; E78.00 Pure hypercholesterolemia, unspecified; M79.7 Fibromyalgia; F32.9 Major depressive disorder, single episode, unspecified; F41.9 Anxiety disorder, unspecified; G89.29 Other chronic pain; Z86.14 Personal history of Methicillin resistant Staphylococcus aureus infection; Z90.710 Acquired absence of both cervix and uterus; Z88.5 Allergy status to narcotic agent; Z91.041 Radiographic dye allergy status; Z88.2 Allergy status to sulfonamides

== ENCOUNTER 2018-11-10 13:25 | Emergency (ER) | payer OTHER, MEDICAID ==
[~2018-11-10] VITALS: Ht 170.2 cm; Wt 83.9 kg
[~2018-11-10 13:25] MED LIST changes: +PREDNISONE 20 M20 M1 PO
[2018-11-10] MEDS ORDERED: CYMBALTA60 MG PO (13:45)
[2018-11-10] MEDS ORDERED: ALTACE10 MG PO (13:45)
[2018-11-10] MEDS ORDERED: TOPAMAX50 MG PO (13:46)
[2018-11-10] MEDS ORDERED: OXYCONTIN15 MG PO (13:46)
[2018-11-10] MEDS ORDERED: DOXEPIN 10 MG C10 M1 PO (13:46)
[2018-11-10] MEDS ORDERED: OXYCODONE HCL15 MG PO (13:47)
[2018-11-10 14:19] LABS: ABSOLUTE BASOPHILS 0.1 thou/uL (0.0-0.2); ABSOLUTE EOSINOPHILS 0.2 thou/uL (0.0-0.7); ABSOLUTE LYMPHOCYTES 3.4 thou/uL (0.8-5.3); ABSOLUTE MONOCYTES 0.4 thou/uL (0.0-1.2); ABSOLUTE NEUTROPHILS 4.9 thou/uL (1.6-8.1); BASOPHILS 0.7 %; EOSINOPHILS 2.3 %; HEMATOCRIT 33.6 % (37.0-47.0); HEMOGLOBIN 11.6 gm/dL (12.0-15.0); LYMPHOCYTES 37.8 %; MCH 31.7 pg (26.0-34.0); MCHC 34.6 g/dL (28.0-37.0); MCV 91.5 fL (80.0-100.0); MONOCYTES 4.6 %; MPV 7.6 fl. (7.2-11.1); NUCLEATED RBCS 0 /100WBC; PLATELET COUNT* 354 thou/uL (150-400); POLYS 54.6 %; RBC 3.67 mil/uL (4.20-5.00); RDW-CV 13.6 % (10.5-14.5)
[2018-11-10 14:27] LABS: ANION GAP 11 mmol/L (7-16); BUN 20 mg/dL (7-18); CALCIUM 9.2 mg/dL (8.5-10.1); CHLORIDE 98 mmol/L (98-107); CO2 27 mmol/L (21-32); CREATININE 0.9 mg/dL (0.6-1.3); GLUCOSE 101 mg/dL (70-99); SODIUM 136 mmol/L (136-145)
[2018-11-10 14:28] LABS: POTASSIUM 2.7 mmol/L (3.5-5.1)
[2018-11-10 14:36] LABS: ALBUMIN 2.9 g/dL (3.4-5.0); ALKALINE PHOSPHATASE 90 U/L (46-116); MAGNESIUM 1.9 mg/dL (1.8-2.4); SGOT 17 U/L (15-37); SGPT 23 U/L (30-65); TOTAL BILIRUBIN 0.2 mg/dL (<0.1-1.0); TROPONIN-I LEVEL <0.06 ng/mL (<0.06)
[2018-11-10] MEDS ORDERED: VENTOLIN HFA 1818 GM INH (14:42)
[2018-11-10] MEDS ORDERED: ZESTORETIC 10-1 EACH PO (14:43)
[2018-11-10] MEDS ORDERED: DOXYCYCLINE 10100 MG PO (14:44)
[2018-11-10] MEDS ORDERED: BENZONATATE100 MG PO (14:44)
[2018-11-10] MEDS ORDERED: PREDNISONE 10 M10 MG PO (14:44)
[2018-11-10] MEDS ORDERED: PREDNISONE 20 M20 M1 PO (15:30)
[2018-11-10] MEDS ORDERED: IPRAT-ALBUT 0.5-3 ML INH (15:30)
[2018-11-10 15:38] VITALS: BP 99/52
--- NOTE | 2018-11-11 10:02 | EKG ---
[place] [address] ELECTROCARDIOGRAM REPORT Name: HUY MARCIAL [id number] Admission: 11/10/18 Attend Phys: Discharge: 11/10/18 Date of : 69 Report #: [id number] THIS REPORT FOR: //name// [facility] ED Test Date: 2018-11-10 Test Time: 14:11:23 Pat Name: HUY MARCIAL Department: Room: Gender: F A And P Mechanic: JESSE : 1965 Requested By: Kimberly Quiñonez Order Number: [id number] MD: Benito Esquivel Measurements Intervals [place] Rate: 73 P: 55 CO: 170 QRS: -13 QRSD: 160 T: -12 QT: 433 QTc: 478 Interpretive Statements Sinus rhythm Probable left atrial enlargement Right bundle branch block Compared to ECG 11/17/2017 13:55:36 No significant changes Electronically Signed On 11-11-2018 10:01:58 CDT by Benito Esquivel [email or web address] <ELECTRONICALLY SIGNED> By: Benito Esquivel MD, [facility] 11/11/18 1001 1411 141 Benito Esquivel MD, FACC /EPI
== END 2018-11-10 15:42 | disposition home or self-care (01) ==
LOC: M.ERS 13:25
PROVIDERS: Personal Emergency Response Attendant
DX: J44.1 Chronic obstructive pulmonary disease with (acute) exacerbation (principal); I10 Essential (primary) hypertension; E78.00 Pure hypercholesterolemia, unspecified; M79.7 Fibromyalgia; K21.9 Gastro-esophageal reflux disease without esophagitis; F32.9 Major depressive disorder, single episode, unspecified; F41.9 Anxiety disorder, unspecified; G89.29 Other chronic pain; M19.90 Unspecified osteoarthritis, unspecified site; Z88.5 Allergy status to narcotic agent; Z91.041 Radiographic dye allergy status; Z90.710 Acquired absence of both cervix and uterus; Z88.2 Allergy status to sulfonamides

== ENCOUNTER → 2018-11-21 | Outpatient (CLI) | payer OTHER, MEDICAID ==
[~2018-11-21] MED LIST changes: +BENZONATATE100 MG PO; +CARVEDILOL25 MG PO; +CLONAZEPAM 0.50.5 M1 PO; +DORYX MPC120 MG PO; +DOXEPIN 10 MG C10 M1 PO; +DOXYCYCLINE 10100 MG PO; +FUROSEMIDE 20 M20 MG PO; +IBU800 MG PO; +INTERMEZZO3.5 MG PO; +KLOR-CON 10 ER10 MEQ PO; +MELATONIN10 M3 PO; +MICROZIDE12.5 MG PO; +OXYBUTYNIN 5 MG5 M2 PO; +OXYCONTIN15 MG PO; +PROAIR HFA8.5 GM PO; +SPIRIVA18 MCG INH; +TYLENOL325 MG PO; +XTAMPZA ER18 MG PO; +ZESTORETIC 10-1 EACH PO
[2018-11-21 13:26] LABS: CALCIUM 8.8 mg/dL (8.5-10.1); CREATININE 0.7 mg/dL (0.6-1.3)
== END ==
LOC: M.LAB 12:36
PROVIDERS: Nurse Practitioner
DX: I10 Essential (primary) hypertension (principal)

== ENCOUNTER 2018-12-02 12:17 | Inpatient (IN) | payer OTHER, MEDICAID ==
[~2018-12-02] VITALS: Ht 170.2 cm; Wt 91.2 kg
[~2018-12-02 12:17] MED LIST changes: -CARVEDILOL25 MG PO; -CLONAZEPAM 0.50.5 M1 PO; -DORYX MPC120 MG PO; -FUROSEMIDE 20 M20 MG PO; -IBU800 MG PO; -INTERMEZZO3.5 MG PO; -KLOR-CON 10 ER10 MEQ PO; -MELATONIN10 M3 PO; -MICROZIDE12.5 MG PO; -OXYBUTYNIN 5 MG5 M2 PO; -PROAIR HFA8.5 GM PO; -SPIRIVA18 MCG INH; -TYLENOL325 MG PO; -XTAMPZA ER18 MG PO
[2018-12-02 12:26] VITALS: BP 135/72
[2018-12-02] MEDS ORDERED: INTERMEZZO3.5 MG PO (12:39)
[2018-12-02] MEDS ORDERED: KLOR-CON 10 ER10 MEQ PO (12:40)
[2018-12-02] MEDS ORDERED: CARVEDILOL25 MG PO (12:41)
[2018-12-02] MEDS ORDERED: FUROSEMIDE 20 M20 MG PO (12:41)
[2018-12-02 13:16] LABS: ABSOLUTE EOSINOPHILS 0.3 thou/uL (0.0-0.7); ABSOLUTE LYMPHOCYTES 2.1 thou/uL (0.8-5.3); ABSOLUTE MONOCYTES 0.3 thou/uL (0.0-1.2); ABSOLUTE NEUTROPHILS 2.3 thou/uL (1.6-8.1); BASOPHILS 0.7 %; HEMATOCRIT 35.7 % (37.0-47.0); LYMPHOCYTES 41.9 %; MCH 32.1 pg (26.0-34.0); MCHC 33.5 g/dL (28.0-37.0); MCV 95.7 fL (80.0-100.0); MONOCYTES 6.8 %; NUCLEATED RBCS 0 /100WBC; PLATELET COUNT* 281 thou/uL (150-400); POLYS 45.6 %; RBC 3.74 mil/uL (4.20-5.00); RDW-CV 15.7 % (10.5-14.5)
[2018-12-02 13:54] LABS: CALCIUM 9.2 mg/dL (8.5-10.1); CREATININE 0.8 mg/dL (0.6-1.3); POTASSIUM 4.1 mmol/L (3.5-5.1)
[2018-12-02 13:59] LABS: ALBUMIN 2.8 g/dL (3.4-5.0); TOTAL BILIRUBIN 0.1 mg/dL (<0.1-1.0); TOTAL PROTEIN 6.7 g/dL (6.4-8.2)
[2018-12-02 14:36] LABS: MAGNESIUM 2.1 mg/dL (1.8-2.4)
[2018-12-02 14:43] LABS: URINE BILIRUBIN NEGATIVE (Negative); URINE BLOOD NEGATIVE (Negative); URINE CLARITY CLEAR; URINE COLOR YELLOW; URINE GLUCOSE-RANDOM NEGATIVE (Negative); URINE KETONES NEGATIVE (Negative); URINE LEUKOCYTES-REFLEX NEGATIVE (Negative); URINE NITRITE-REFLEX NEGATIVE (Negative); URINE PROTEIN NEGATIVE (Negative); URINE SPECIFIC GRAVITY <= 1.005 (1.005-1.030); URINE UROBILINOGEN 0.2 E.U./dl (0.2-1.0)
--- NOTE | 2018-12-02 15:37 | EKG ---
[place] [address] ELECTROCARDIOGRAM REPORT Name: HUY MARCIAL Room: [place] [address] ADM IN ..#: [id number] Admission: 12/02/18 Attend Phys: Buzz Heath MD Discharge: Date of : 69 Report #: [id number] THIS REPORT FOR: //name// [facility] ED Test Date: 2018-12-02 Test Time: 12:42:18 Pat Name: HUY MARCIAL Department: Room: [facility] Gender: F Road Boss: LUKAS : 1965 Requested By: Kimberly Quiñonez Order Number: [id number] MD: Chaparro Perez Measurements Intervals [place] Rate: 62 P: 42 MA: 146 QRS: 13 QRSD: 147 T: 5 QT: 418 QTc: 425 Interpretive Statements Sinus rhythm Right bundle branch block Compared to ECG 11/10/2018 14:11:23 No significant changes Electronically Signed On 12-02-2018 15:37:34 CDT by Chaparro Perez [email or web address] <ELECTRONICALLY SIGNED> By: Tenisha Perez MD, [facility] 12/02/18 1537 124 124 Tenisha Perez MD, [facility] /EPI
[2018-12-02 16:00] VITALS: BP 161/89
[2018-12-02 16:20] VITALS: BP 135/85
--- NOTE | 2018-12-02 16:34 | 2DMMODE ---
[place] [address] 2 D/M-MODE ECHOCARDIOGRAM Name: HUY MARCIAL Room: [address] M.R.#: [id number] Admission: 12/02/18 Attend Phys: Buzz Heath, Discharge: Date of : 69 Date of Service: 12/02/18 1633 Report #: [id number] THIS REPORT FOR: //name// APPROVED REPORT Study performed: 12/02/2018 15:12:40 EXAM: Comprehensive 2D, Doppler, and color-flow Echocardiogram Patient Location: ER Room #: er Status: routine BSA: 2.03 HR: 65 bpm BP: 135/72 mmHg Rhythm: NSR Other Information Study Quality: Good Indications Dyspnea edema 2D Dimensions IVSd: 11.06 (7-11mm) LVOT Diam: 21.41 (18-24mm) LVDd: 44.21 mm PWd: 11.25 (7-11mm) Ascending Ao: 32.44 (22-36mm) LVDs: 27.11 (25-40mm) Aortic Root: 32.53 mm Volumes Left Atrial Volume (Systole) LA ESV Index: 26.30 mL/m2 Aortic Valve AoV Peak Riley.: 1.49 m/s AO Peak Gr.: 8.89 mmHg LVOT Max P.16 mmHg AO Mean Gr.: 4.74 mmHg LVOT Mean P.04 mmHg LVOT Max V: 1.34 m/s AO V2 VTI: 31.38 cm LVOT Mean V: 0.78 m/s RHINA (VTI): 3.15 cm2 LVOT V1 VTI: 27.43 cm Mitral Valve E/A Ratio: 2.06 MV Decel. Time: 128.46 [place] [address] 2 D/M-MODE ECHOCARDIOGRAM Name: HUY MARCIAL Room: [address] M.R.#: [id number] Admission: 12/02/18 Attend Phys: Buzz Heath, Discharge: Date of : 69 Date of Service: 12/02/18 1633 Report #: [id number] MV E Max Riley.: 1.01 m/s MV PHT: 37.25 ms MVA (PHT): 5.91 cm2 TDI E/Lateral E': 7.77 E/Medial E': 8.42 Medial E' Riley.: 0.12 m/s Lateral E' Riley.: 0.13 m/s Pulmonary Valve PV Peak Riley.: 0.90 m/s PV Peak Gr.: 3.27 mmHg Tricuspid Valve RAP Estimate: 5.00 mmHg TR Peak Gr.: 22.26 mmHg RVSP: 27.00 mmHg PA Pressure: 27.00 mmHg Left Ventricle The left ventricle is normal size. There is normal LV segmental wall motion. There is normal left ventricular wall thickness. Left ventricular systolic function is normal. The left ventricular ejection fraction is within the normal range. LVEF is 60-65%. The left ventricular diastolic function is normal. Right Ventricle The right ventricle is normal size. The right ventricular systolic function is normal. Atria The left atrium size is normal. The right atrium size is normal. Aortic Valve The aortic valve is normal in structure. No aortic regurgitation is present. There is no aortic valvular stenosis. Mitral Valve The mitral valve is normal in structure. There is no mitral valve regurgitation noted. No evidence of mitral valve stenosis. Tricuspid Valve The tricuspid valve is normal in structure. Mild tricuspid regurgitation. No pulmonary hypertension. Pulmonic Valve The pulmonary valve is normal in structure[place] [address] 2 D/M-MODE ECHOCARDIOGRAM Name: HUY MARCIAL Room: [address]#: [id number] Admission: 12/02/18 Attend Phys: Buzz Heath, Discharge: Date of : 69 Date of Service: 12/02/18 1633 Report #: [id number] regurgitation. Great Vessels The aortic root is normal in size. IVC is normal in size and collapses >50% with inspiration. Pericardium There is no pericardial effusion. <Conclusion> LVEF is 60-65%. There is normal LV segmental wall motion. Mild tricuspid regurgitation. No pulmonary hypertension. Mild pulmonic regurgitation. <ELECTRONICALLY SIGNED> By: Tenisha Perez MD, FACC 12/02/18 [phone] 32 Tenisha Perez MD, FACC /INF
--- NOTE | 2018-12-02 17:43 | NUR ---
VSS, ASSUMED CARE IN THE AM, ASSESSMENT PERFORMED AND CHARTED, FALL PRECAUTIONS IN PLACE AND CALL LIGHT IN REACH, PT IS A&O4 AND UP AD STEFANIA, ON 2L NC PRN, TRACING SR ON THE MONITOR, PT IS UP AD STEFANIA, PT STATES PT IN LEGS, WILL FOLLOW WITH PLAN OF CARE.
[2018-12-02 20:10] VITALS: BP 155/73
[2018-12-03] VITALS: BP 152/80
--- NOTE | 2018-12-03 03:24 | NUR ---
ASSUMED CARE OF PT AT 1900. PT IS ALERT AND ORIENTED. VSS. PERRLA. PT RECIEVED OXYCODONE FOR PAIN. PT IS IN SINUS RYTHM ON THE TELEMETRY. PT IS RESTING COMFORTABLY IN BED. RESPIRATIONS ARE EVEN AND NONLABORED. WILL CONTINUE TO MONITOR PT.
[2018-12-03 04:00] VITALS: BP 159/89
[2018-12-03 05:19] LABS: CALCIUM 9.4 mg/dL (8.5-10.1); CREATININE 0.9 mg/dL (0.6-1.3); MAGNESIUM 1.9 mg/dL (1.8-2.4); POTASSIUM 3.6 mmol/L (3.5-5.1)
--- NOTE | 2018-12-03 07:25 | NUR ---
CHANGE OF SHIFT, BEDSIDE REPORT GIVEN PATIENT SEEN AT BEDSIDE, IN BED RESTING ASSUMED PATIENT CARE
[2018-12-03 08:00] VITALS: BP 115/59
[2018-12-03 11:29] VITALS: BP 133/77
[2018-12-03 15:45] VITALS: BP 113/61
[2018-12-03] MEDS ORDERED: CLONAZEPAM 0.50.5 M1 PO (17:46)
[2018-12-03] MEDS ORDERED: OXYBUTYNIN 5 MG5 M2 PO (17:47)
[2018-12-03] MEDS ORDERED: XTAMPZA ER18 MG PO (17:48)
[2018-12-03] MEDS ORDERED: IBU800 MG PO (17:50)
[2018-12-03] MEDS ORDERED: MICROZIDE12.5 MG PO (17:53)
[2018-12-03] MEDS ORDERED: DORYX MPC120 MG PO (17:54)
[2018-12-03] MEDS ORDERED: ROBAXIN 750 MG750 MG PO (17:56)
[2018-12-03] MEDS ORDERED: SPIRIVA18 MCG INH (17:57)
[2018-12-03] MEDS ORDERED: PROAIR HFA8.5 GM INH (17:57)
--- NOTE | 2018-12-03 18:02 | NUR ---
PT A&OX4 VSS. PT AMB INDEPENDENTLY, GAIT STEADY. PT ON 2000ML FLUID RESTRICTION. PT AWARE. PT AT 1500ML UPON ARRIVAL TO UNIT. PT ARRIVES IN WC WITH ALL PERSONAL BELONGINGS. ORDERS TO COLLECT 24 HOUR URINE, SPECIMEN CONTAINER BROUGHT TO UNIT BY NURSING STAFF.
[2018-12-03] MEDS ORDERED: PROAIR HFA8.5 GM PO (18:12)
--- NOTE | 2018-12-03 18:30 | NUR ---
patient ms status transferred to [facility] 312 patient sent via good condition personal belongings sent
--- NOTE | 2018-12-04 06:36 | NUR ---
PATIENT STILL ON 24 HOUR URINE COLLECTION. SHE REQUESTED PAIN MEDICINE TWICE DURING THE SHIFT AND TOOK MEDS PRESCRIBED. PLAN IS TO CONTINUE LASIX AND CONTINUE FLUID RESTRICTION. WILL CONTINUE TO MONITOR
[2018-12-04 07:35] VITALS: BP 135/66
[2018-12-04 10:24] LABS: CALCIUM 9.3 mg/dL (8.5-10.1); CREATININE 0.9 mg/dL (0.6-1.3); MAGNESIUM 1.8 mg/dL (1.8-2.4); POTASSIUM 3.2 mmol/L (3.5-5.1)
--- NOTE | 2018-12-04 11:06 | CON ---
[address] [address] CONSULTATION Name: HUY MARCIAL Room: [address] IN M.R.#: [id number] Admission: 12/03/18 Attend Phys: Buzz Heath MD Discharge: Date of : 69 Report #: [id number] THIS REPORT FOR: //name// CC: Buzz Moreno DATE OF SERVICE: 12/03/2018 INDICATION: Lower extremity edema. HISTORY OF PRESENT ILLNESS: The patient is a 53-year-old white female who was admitted to the hospital with failure to diurese despite increasing doses of oral diuretics as an outpatient. She had developed 3+ lower extremity edema, hindering her ability to ambulate. She has no chest pain. She has no shortness of breath. EKG shows normal LV systolic and diastolic function. She had no other cardiac abnormalities noted. PAST MEDICAL HISTORY: 1. COPD. 2. Hypertension. 3. Chronic tobacco use. 4. Hyperlipidemia. 5. Hypothyroidism. 6. Restless leg syndrome. 7. PVCs. PAST SURGICAL HISTORY: 1. Carpal release, left side. 2. Hysterectomy. 3. Laminectomy. 4. Oophorectomy. 5. Tibial fracture surgery. FAMILY HISTORY: The patient was adopted. SOCIAL HISTORY: The patient quit smoking in 2014. She does not drink alcohol. CURRENT MEDICATIONS: Albuterol 1 puff q. 4 hours p.r.n., Abilify 15 mg daily, Tessalon Perles 100 mg t.i.d., carbamazepine 200 mg b.i.d., carvedilol 25 mg b.i.d., clonidine 0.1 mg b.i.d., duloxetine 60 mg daily, furosemide 20 mg daily, Vistaril 25 mg t.i.d. p.r.n., Combivent inhaler q. 4 hours p.r.n., lisinopril 10 mg daily, Singulair 10 mg at bedtime, Prilosec 40 mg daily, OxyContin 15 mg as directed, oxycodone IR 15 mg q. 8 hours p.r.n., potassium chloride 10 mEq daily, Requip 2 mg at bedtime, Senna Plus tablets one tablet b.i.d., Zocor 40 mg at bedtime, Topamax 50 mg daily, intermezzo 6.25 [place] [address] CONSULTATION Name: HUY MARCIAL Room: [address] IN [facility]#: [id number] Admission: 12/03/18 Attend Phys: Buzz Heath MD Discharge: Date of : 69 Report #: [id number] REVIEW OF SYSTEMS: A 14-point review of systems is positive for weight loss, cough, asthma, chest tightness, near syncope, lower extremity edema, colitis, seasonal allergies, medical allergies. She wears glasses, partial dentures. Otherwise, 14-point review of systems unremarkable. PHYSICAL EXAMINATION: VITAL SIGNS: Blood pressure 133/77, pulse 78 and regular. GENERAL: This is a pleasant lady in no distress. Mood and affect appropriate. HEENT: Extraocular muscles intact. Mucous membranes are moist. NECK: Shows no jugular venous distention. There are no carotid bruits. CHEST: Reveals clear lung catalan. CARDIOVASCULAR: Reveals a regular rhythm without gallop or murmur. ABDOMEN: Reveals normal bowel sounds. The abdomen is soft, nontender. EXTREMITIES: Shows trace edema that has resolved significantly from admission. Peripheral pulses are 2+ and easily palpable. SKIN: Dry. A 12-lead EKG shows sinus rhythm with no significant ST or T-wave abnormalities. Labs are reviewed. Electrolytes within normal limits. Serum glucose 175. Albumin 2.8. NT-proBNP 316. IMPRESSION AND RECOMMENDATIONS: 1. Lower extremity edema. Etiology not clear. This does not appear to be related to heart failure. Obtaining a 24-hour urine protein to rule out nephrotic syndrome. Obtaining abdominal and pelvic CT scan to rule out obstructing mass. The patient has responded nicely to overnight diuresis here in the hospital. 2. Hypertension. Blood pressure adequately controlled at present. Continue current home regimen. 3. Hyperlipidemia. Continue simvastatin. 4. Bipolar disorder, follows with outside psychiatrist. <ELECTRONICALLY SIGNED> By: León Knight MD, FACC 12/04/18 1106 1305 1525Micdesi Knight MD, FACC /nt
[2018-12-04 16:00] VITALS: BP 159/84
[2018-12-04 17:24] LABS: COLLECTION DURATION 24 Hours; TOTAL VOLUME 2600 mL
--- NOTE | 2018-12-04 17:32 | NUR ---
PT REMAINED ALERT AND ORIENTED. PT RESTING IN ROOM. MEDS GIVEN ORDERED. 24 HOUR URINE COLLECTED AND FINISHED. FALL RISK PRECAUTIONS IN PLACE. HOURLY ROUNDING COMPLETED. WILL CONTINUE TO MONITOR.
[2018-12-05 03:58] LABS: HEMATOCRIT 36.2 % (37.0-47.0); HEMOGLOBIN 12.1 gm/dL (12.0-15.0); MCH 31.6 pg (26.0-34.0); MCHC 33.5 g/dL (28.0-37.0); MCV 94.4 fL (80.0-100.0); RBC 3.83 mil/uL (4.20-5.00); RDW-CV 15.1 % (10.5-14.5); WBC 7.4 thou/uL (4.0-11.0)
[2018-12-05 04:22] LABS: CALCIUM 9.3 mg/dL (8.5-10.1); CREATININE 0.8 mg/dL (0.6-1.3); MAGNESIUM 1.8 mg/dL (1.8-2.4)
[2018-12-05 04:25] LABS: POTASSIUM 4.3 mmol/L (3.5-5.1)
--- NOTE | 2018-12-05 05:24 | NUR ---
PT SLEPT ON AND OFF OVERNIGHT. UP AD STEFANIA TO BATHROOM, INSTRUCTED IN I&0 MEASUREMENT OF URINE-PT VERBALIZED UNDERSTANDING. LAC SL. ROOM AIR SAT 94%, O2 2L PRN OVERNIGHT. RT TX GIVEN ORDERED. TRACE BLE EDEMA, VERY SLIGHT PINK BLE, PT STATES MUCH IMPROVED FROM ADMIT. AM LABS DRAWN. RECEIVING SCHEDULED AND PRN PAIN MED FOR CO FIBROMYALGIA AND BACK PAIN WITH FAIR RELIEF.ABLE TO USE CALL LITE AND MAKE NEEDS KNOWN.
[2018-12-05 07:55] VITALS: BP 140/80
--- NOTE | 2018-12-05 14:36 | NUR ---
Pt to dc home today. SW arranged for [employer] transportation to provide pt ride home. Pt has RW and hx of [facility]. 3 hr window for ride arrival and call to nurses' station upon ride arrival...ticket number [id number]
[2018-12-05] MEDS ORDERED: TYLENOL325 MG PO (15:50)
[2018-12-05] MEDS ORDERED: MELATONIN10 M3 PO (15:51)
[2018-12-05 15:54] VITALS: BP 140/80
[2018-12-05] MEDS ORDERED: PREDNISONE 10 M10 MG PO (16:00)
--- NOTE | 2018-12-05 19:53 | NUR ---
PATIENT ALERT AND ORIENTED THROUGHOUT SHIFT. NO SIGNS OF DISTRESS OBSERVED. ALL SAFETY MEASURES MAINTAINED. PATIENT DISCHARGED WITH ALL DISCHARGE PAPERWORK AND PRESCRIPTIONS. PATIENT DENIED FURTHER NEEDS BEFORE DISCHARGE. IV REMOVED.
[2018-12-06 06:06] LABS: URINE PROTEIN < 104 mg/24 hr (30-150); URINE PROTEIN (MG/DL) < 4.0 mg/dL (Not Estab.)
== END 2018-12-05 19:56 | disposition home or self-care (01) | DRG 177 ==
LOC: M.ERS 12:17 → M.2W 15:21 → M.TBA-ER 15:21 → M.2W 16:28 → M.3W 12-03 12:56 → M.2W 12-03 12:56 → M.3W 12-03 17:38
PROVIDERS: Internal Medicine Cardiovascular Disease; Personal Emergency Response Attendant; ADMIT Internal Medicine
DX: J69.0 Pneumonitis due to inhalation of food and vomit (principal); I50.31 Acute diastolic (congestive) heart failure; E43 Unspecified severe protein-calorie malnutrition; L03.116 Cellulitis of left lower limb; L03.115 Cellulitis of right lower limb; E78.00 Pure hypercholesterolemia, unspecified; M79.7 Fibromyalgia; K21.9 Gastro-esophageal reflux disease without esophagitis; G89.29 Other chronic pain; M19.90 Unspecified osteoarthritis, unspecified site; I11.0 Hypertensive heart disease with heart failure; E66.9 Obesity, unspecified; F41.1 Generalized anxiety disorder; E78.5 Hyperlipidemia, unspecified; E03.9 Hypothyroidism, unspecified; G25.81 Restless legs syndrome; F31.9 Bipolar disorder, unspecified; I37.1 Nonrheumatic pulmonary valve insufficiency; K58.9 Irritable bowel syndrome, unspecified; J44.9 Chronic obstructive pulmonary disease, unspecified; Z87.891 Personal history of nicotine dependence; Z98.1 Arthrodesis status; Z90.710 Acquired absence of both cervix and uterus; Z86.14 Personal history of Methicillin resistant Staphylococcus aureus infection; Z79.899 Other long term (current) drug therapy; Z88.6 Allergy status to analgesic agent; Z88.2 Allergy status to sulfonamides; Z91.041 Radiographic dye allergy status; Z87.01 Personal history of pneumonia (recurrent); Z79.891 Long term (current) use of opiate analgesic; Z68.31 Body mass index [BMI] 31.0-31.9, adult; Z90.721 Acquired absence of ovaries, unilateral; Z79.51 Long term (current) use of inhaled steroids; Z23 Encounter for immunization

== ENCOUNTER → 2018-12-02 | Outpatient (CLI) | payer OTHER, MEDICAID ==
[2018-12-02 11:27] LABS: CALCIUM 9.2 mg/dL (8.5-10.1); CREATININE 0.8 mg/dL (0.6-1.3); POTASSIUM 4.3 mmol/L (3.5-5.1)
== END ==
LOC: M.RAD 10:38
PROVIDERS: Nurse Practitioner
DX: R60.9 Edema, unspecified (principal)

== ENCOUNTER → 2018-12-20 | Outpatient (CLI) | payer OTHER, MEDICAID ==
[~2018-12-20] MED LIST changes: +CARVEDILOL25 MG PO; +CLONAZEPAM 0.50.5 M1 PO; +DORYX MPC120 MG PO; +FUROSEMIDE 20 M20 MG PO; +IBU800 MG PO; +INTERMEZZO3.5 MG PO; +KLOR-CON 10 ER10 MEQ PO; +MELATONIN10 M3 PO; +MICROZIDE12.5 MG PO; +OXYBUTYNIN 5 MG5 M2 PO; +PROAIR HFA8.5 GM PO; +SPIRIVA18 MCG INH; +TYLENOL325 MG PO; +XTAMPZA ER18 MG PO
[2018-12-20 12:11] LABS: CREATININE 0.9 mg/dL (0.6-1.3); POTASSIUM 3.7 mmol/L (3.5-5.1)
== END ==
LOC: M.LAB 11:27
PROVIDERS: Registered Nurse
DX: R60.0 Localized edema (principal)

== ENCOUNTER → 2018-12-28 | Outpatient (CLI) | payer OTHER, MEDICAID ==
[2018-12-28 13:03] LABS: CALCIUM 9.2 mg/dL (8.5-10.1); CREATININE 1.1 mg/dL (0.6-1.3); MAGNESIUM 2.4 mg/dL (1.8-2.4); POTASSIUM 3.3 mmol/L (3.5-5.1)
== END ==
LOC: M.LAB 12:14
PROVIDERS: Registered Nurse
DX: R60.9 Edema, unspecified (principal)

== ENCOUNTER → 2019-01-24 | Outpatient (CLI) | payer OTHER, MEDICAID ==
[2019-01-24 11:54] LABS: CALCIUM 9.8 mg/dL (8.5-10.1); CREATININE 1.1 mg/dL (0.6-1.3); POTASSIUM 4.5 mmol/L (3.5-5.1)
== END ==
LOC: M.LAB 11:21
PROVIDERS: Registered Nurse
DX: R60.0 Localized edema (principal)

== ENCOUNTER 2021-02-24 10:40 | Emergency (ER) | payer OTHER, MEDICAID ==
[~2021-02-24] VITALS: Ht 170.2 cm; Wt 61.2 kg
[2021-02-24 12:52] LABS: ABSOLUTE EOSINOPHILS 0.3 thou/uL (0.0-0.7); ABSOLUTE LYMPHOCYTES 1.3 thou/uL (0.8-5.3); ABSOLUTE MONOCYTES 0.5 thou/uL (0.0-1.2); BASOPHILS 0.3 %; EOSINOPHILS 4.2 %; HEMATOCRIT 37.4 % (37.0-47.0); HEMOGLOBIN 12.5 gm/dL (12.0-15.0); LYMPHOCYTES 18.3 %; MCH 31.6 pg (26.0-34.0); MCHC 33.4 g/dL (28.0-37.0); MCV 94.7 fL (80.0-100.0); MONOCYTES 7.6 %; MPV 9.5 fl. (7.2-11.1); NUCLEATED RBCS 0 /100WBC; PLATELET COUNT* 187 thou/uL (150-400); POLYS 69.6 %; RBC 3.95 mil/uL (4.20-5.00); RDW-CV 15.3 % (10.5-14.5); WBC 7.2 thou/uL (4.0-11.0)
[2021-02-24 12:53] LABS: CALCIUM 9.3 mg/dL (8.5-10.1); CREATININE 0.9 mg/dL (0.6-1.3); POTASSIUM 4.4 mmol/L (3.5-5.1)
[2021-02-24 12:58] LABS: ALBUMIN 3.2 g/dL (3.4-5.0); TOTAL BILIRUBIN 0.3 mg/dL (<0.1-1.0); TOTAL PROTEIN 7.2 g/dL (6.4-8.2)
--- NOTE | 2021-02-24 13:23 | EKG ---
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: [facility] : 1965 Requested By: Suman Bhakta Order Number: [id number] MD: Wilmar Srinivasan Measurements Intervals [place] Rate: 69 P: 69 ND: 136 QRS: 71 QRSD: 117 T: 48 QT: 380 QTc: 407 Interpretive Statements Sinus rhythm Left atrial enlargement Incomplete right bundle branch block Compared to ECG 12/02/2018 12:42:18 Atrial abnormality now present Right bundle branch block persists Electronically Signed On 02-24-2021 13:23:00 ASH WORKER by Wilmar Srinivasan [email or web address] <ELECTRONICALLY SIGNED> By: Wilmar Srinivasan MD, [facility] 02/24/21 1323 1233 1233 Wilmar Srinivasan MD, [facility] /EPI
[2021-02-24] MEDS ORDERED: ZANAFLEX4 MG PO (14:23)
[2021-02-24 15:06] VITALS: BP 107/55
== END 2021-02-24 15:09 | disposition home or self-care (01) ==
LOC: M.ERS 10:40
PROVIDERS: Family Medicine
DX: S16.1XXA Strain of muscle, fascia and tendon at neck level, initial encounter (principal); S39.012A Strain of muscle, fascia and tendon of lower back, initial encounter; S40.012A Contusion of left shoulder, initial encounter; S40.011A Contusion of right shoulder, initial encounter; S20.222A Contusion of left back wall of thorax, initial encounter; S00.03XA Contusion of scalp, initial encounter; I10 Essential (primary) hypertension; E78.00 Pure hypercholesterolemia, unspecified; K21.9 Gastro-esophageal reflux disease without esophagitis; F32.9 Major depressive disorder, single episode, unspecified; F41.9 Anxiety disorder, unspecified; Z90.710 Acquired absence of both cervix and uterus; Z79.899 Other long term (current) drug therapy; Z88.5 Allergy status to narcotic agent; Z88.2 Allergy status to sulfonamides; Z91.041 Radiographic dye allergy status; W19.XXXA Unspecified fall, initial encounter; Y93.89 Activity, other specified; Y92.89 Other specified places as the place of occurrence of the external cause; Y99.8 Other external cause status